=== PATIENT | female | born 1960 | race Caucasian/White ===

== ENCOUNTER 2019-07-21 00:13 | Inpatient (IN) ==
[2019-07-21] MEDS ORDERED: Morphine Sulfate 2 MG/ML SYRINGE IVP ONE (02:27)
[2019-07-21] MEDS ORDERED: Naloxone 0.4 MG/ML INJ IVP PRN (02:41)
[2019-07-21] MEDS ORDERED: Ondansetron 4 MG/2 ML VIAL IVP PRN (02:41)
[2019-07-21] MEDS ORDERED: *HR* Dextrose 50 % in Water (Syg) 50 ML SYRINGE IVP PRN (02:51)
[2019-07-21] MEDS ORDERED: D5% in Water 1,000 ML IVC PRN (02:51)
[2019-07-21] MEDS ORDERED: Dextrose Gel 15 GM/37.5 ML TUBE PO PRN ×2 (02:51)
[2019-07-21] MEDS ORDERED: Vancomycin 1,500 MG/265 ML IV.SOLN IVPB ONE (04:01)
[2019-07-21 04:04] LABS: Bilirubin,Urine Negative (Negative); Blood,Urine Negative (Negative); Clarity,Urine Clear (Clear); Color,Urine Yellow (Yellow); Glucose,Urine (UA) >=1000 mg/dL (Normal); Ketones,Urine Negative (Negative); Leukocyte Esterase,Urine Negative (Negative); Nitrite,Urine Negative (Negative); PH,Urine 6.5 pH Units (5.0-8.0); Protein,Urine Negative (Neg-Trace); Specific Gravity,Urine 1.025 (1.010-1.025); Urobilinogen,Urine Normal (Normal)
[2019-07-21 04:04] LABS: Basophils % 0.2 %; Hemoglobin 12.1 g/dL (11.5-15.4); Immature Granulocytes % 0.8 % (0-4); Lymphocytes # 0.2 K/mcL (0.6-4.6); Mean Corpuscular HGB Conc 32.7 g/dL (31.6-35.5); Mean Corpuscular Hemoglobin 29.7 pg (28.0-33.3); Mean Corpuscular Volume 90.7 fL (83.0-100.0); Mean Platelet Volume 10.3 fL (9.4-12.4); Monocytes # 0.2 K/mcL (0.0-1.3); Monocytes % 3.5 %; Neutrophils # 6.2 K/mcL (1.6-8.9); Platelet Count 115 K/mcL (140-400); Red Blood Count 4.08 M/mcL (3.82-4.97); Red Cell Distribution Width 14.1 % (11.5-14.5); Segmented Neutrophils % 92.5 %; White Blood Count 6.6 K/mcL (4.3-11.1)
[2019-07-21 04:10] LABS: INR 1.3; Prothrombin Time 14.4 Seconds (9.4-12.1)
[2019-07-21 04:36] LABS: Alanine Aminotransferase 26 Units/L (7-52); Albumin 3.5 g/dL (3.5-5.7); Alkaline Phosphatase 96 Units/L (34-104); Aspartate Amino Transferase 88 Units/L (13-39); BUN/Creatinine Ratio 24 (6-26); Bilirubin,Total 0.5 mg/dL (0.3-1.0); Blood Urea Nitrogen 14 mg/dL (6-20); C-Reactive Protein 279 mg/L (Less than 10); Calcium 7.9 mg/dL (8.6-10.3); Carbon Dioxide 24 mEq/L (23-29); Chloride 95 mEq/L (98-107); Globulin 3.6 g/dL (2.4-3.5); Glucose 458 mg/dL (70-105); Lactate Dehydrogenase 903 Units/L (140-271); Magnesium 1.9 mg/dL (1.6-2.6); Osmolality,Calculated 290 (280-300); Potassium 3.9 mEq/L (3.5-5.1); Sodium 130 mEq/L (136-145); Total Protein 7.1 g/dL (6.4-8.9); Troponin I < 0.03 ng/mL (< 0.04); eGFR For African Americans > 60 (> 60); eGFR For Non-African Americans > 60 (> 60)
[2019-07-21 04:52] LABS: Ferritin 854 ng/mL (10-120)
[2019-07-21] MEDS: Insulin LISPRO 300 UNITS/3 ML VIAL SQ SCH ×6 (05:06→23:57)
[2019-07-21] MEDS: *HR* LORazepam 2 MG/ML VIAL IVP PRN (05:08)
[2019-07-21] MEDS: *HR* Enoxaparin 40 MG/0.4 ML SYRINGE SQ SCH (05:11)
[2019-07-21] MEDS ORDERED: 0.9 % Sodium Chloride 500 ML IVC ONE (05:53)
[2019-07-21] MEDS ORDERED: Piperacillin/Tazobactam 3.375 GM in 0.9 % Sodium Chloride Mini Bag 100 ML IVPB SCH (06:00)
[2019-07-21] MEDS ORDERED: Azithromycin 250 MG TABLET PO SCH (07:00)
[2019-07-21] MEDS ORDERED: *HR* LORazepam 2 MG/ML VIAL IVP ONE (08:35)
[2019-07-21] MEDS ORDERED: methylPREDNISolone 125 MG/2 ML VIAL IVP ONE (08:57)
[2019-07-21] MEDS ORDERED: Azithromycin 500 MG in 0.9 % Sodium Chloride 250 ML IVPB SCH (09:00)
[2019-07-21 09:02] LABS: ABG Base Excess 2 mEq/L (-2 to 3); ABG HCO3 27 mEq/L (21-27); ABG Oxygen Saturation 98 % (95-98); ABG PCO2 42 mmHg (35-45); ABG PH 7.41 pH Units (7.32-7.45); ABG PO2 97 mmHg (85-104); ABG TCO2 28 mEq/L (20-26)
[2019-07-21 10:02] LABS: Adenovirus Not Detected (Not Detect); Bordetella Pertussis Not Detected (Not Detect); Chlamydophila pneumoniae Not Detected (Not Detect); Coronavirus 229E Not Detected (Not Detect); Coronavirus HKU1 Not Detected (Not Detect); Coronavirus NL63 Not Detected (Not Detect); Coronavirus OC43 Not Detected (Not Detect); Human Metapneumovirus Not Detected (Not Detect); Human Rhinovirus/Enterovirus Not Detected (Not Detect); Influenza A Subtype 2009 H1 Not Detected (Not Detect); Influenza B Not Detected (Not Detect); Mycoplasma pneumoniae Not Detected (Not Detect); Parainfluenza Virus 1 Not Detected (Not Detect); Parainfluenza Virus 2 Not Detected (Not Detect); Parainfluenza Virus 3 Not Detected (Not Detect); Parainfluenza Virus 4 Not Detected (Not Detect); Respiratory Syncytial Virus Not Detected (Not Detect)
[2019-07-21] MEDS: Piperacillin/Tazobactam 3.375 GM in 0.9 % Sodium Chloride Mini Bag 100 ML IVPB SCH ×2 (13:23→19:59)
[2019-07-21] MEDS: Vancomycin 1,250 MG/262.5 ML IV.SOLN IVPB SCH (16:37)
[2019-07-21] MEDS ORDERED: methylPREDNISolone 125 MG/2 ML VIAL IVP SCH (18:00)
[2019-07-21] MEDS: Doxycycline 100 MG in 0.9 % Sodium Chloride Mini Bag 100 ML IVPB SCH (18:05)
[2019-07-21] MEDS: Famotidine 20 MG/2 ML VIAL IVP SCH (18:05)
[2019-07-21] MEDS: *HR* OxyCODONE/APAP 7.5/325 TABLET PO PRN (18:06)
[2019-07-21] MEDS: QUEtiapine Fumarate 300 MG TABLET PO SCH (19:55)
[2019-07-21] MEDS: diazePAM 2 MG TABLET PO SCH (19:57)
[2019-07-21] MEDS: Divalproex (12 HR) 500 MG TABLET PO SCH (19:57)
[2019-07-21] MEDS: QUEtiapine Fumarate 25 MG TABLET PO SCH (19:57)
[2019-07-21] MEDS: Insulin DETEMIR 100 UNIT/ML X5UNITS SQ SCH (19:57)
[2019-07-21] MEDS: Dexmedetomidine HCl 400 MCG/100 ML MLS IVC SCH (19:58)
[2019-07-22] MEDS: Insulin LISPRO 300 UNITS/3 ML VIAL SQ SCH ×5 (04:00→21:11)
[2019-07-22 04:03] LABS: Basophils % 0.1 %; Hematocrit 35.7 % (35.3-44.9); Hemoglobin 11.5 g/dL (11.5-15.4); Immature Granulocytes % 0.5 % (0-4); Lymphocytes # 0.7 K/mcL (0.6-4.6); Lymphocytes % 9.5 %; Mean Corpuscular HGB Conc 32.2 g/dL (31.6-35.5); Mean Corpuscular Hemoglobin 29.6 pg (28.0-33.3); Mean Platelet Volume 10.2 fL (9.4-12.4); Monocytes # 0.3 K/mcL (0.0-1.3); Monocytes % 3.4 %; Neutrophils # 6.4 K/mcL (1.6-8.9); Platelet Count 113 K/mcL (140-400); Red Blood Count 3.88 M/mcL (3.82-4.97); Red Cell Distribution Width 14.1 % (11.5-14.5); Segmented Neutrophils % 86.5 %; White Blood Count 7.4 K/mcL (4.3-11.1)
[2019-07-22 04:10] LABS: INR 1.1; Prothrombin Time 12.6 Seconds (9.4-12.1)
[2019-07-22 04:13] LABS: Activated Partial Thrombo Time 27.8 Seconds (26.0-36.0)
[2019-07-22] MEDS: *HR* LORazepam 2 MG/ML VIAL IVP PRN (04:14)
[2019-07-22 04:27] LABS: Alanine Aminotransferase 22 Units/L (7-52); Albumin 3.1 g/dL (3.5-5.7); Alkaline Phosphatase 89 Units/L (34-104); Aspartate Amino Transferase 55 Units/L (13-39); BUN/Creatinine Ratio 32 (6-26); Bilirubin,Direct 0.1 mg/dL (0.0-0.2); Bilirubin,Indirect 0.3 mg/dL (0.0-1.0); Bilirubin,Total 0.4 mg/dL (0.3-1.0); Blood Urea Nitrogen 19 mg/dL (6-20); C-Reactive Protein 168 mg/L (Less than 10); Calcium 8.1 mg/dL (8.6-10.3); Carbon Dioxide 27 mEq/L (23-29); Chloride 102 mEq/L (98-107); Globulin 3.2 g/dL (2.4-3.5); Glucose 137 mg/dL (70-105); Lactate Dehydrogenase 796 Units/L (140-271); Magnesium 2.3 mg/dL (1.6-2.6); Osmolality,Calculated 290 (280-300); Phosphorous 2.5 mg/dL (2.7-4.5); Potassium 3.8 mEq/L (3.5-5.1); Sodium 138 mEq/L (136-145); Total Protein 6.3 g/dL (6.4-8.9); Troponin I < 0.03 ng/mL (< 0.04); eGFR For African Americans > 60 (> 60); eGFR For Non-African Americans > 60 (> 60)
[2019-07-22] MEDS: Vancomycin 1,250 MG/262.5 ML IV.SOLN IVPB SCH ×2 (04:37→17:01)
[2019-07-22] MEDS: Piperacillin/Tazobactam 3.375 GM in 0.9 % Sodium Chloride Mini Bag 100 ML IVPB SCH (04:38)
[2019-07-22 04:43] LABS: Ferritin 1076 ng/mL (10-120)
[2019-07-22 04:53] LABS: Platelet Estimate Slight Decrease (Normal); Polychromasia 1+ (Not Present)
[2019-07-22] MEDS: Dexmedetomidine HCl 400 MCG/100 ML MLS IVC SCH (06:07)
[2019-07-22] MEDS: Doxycycline 100 MG in 0.9 % Sodium Chloride Mini Bag 100 ML IVPB SCH ×2 (06:30→17:01)
[2019-07-22] MEDS: *HR* Enoxaparin 40 MG/0.4 ML SYRINGE SQ SCH (06:30)
[2019-07-22] MEDS: Famotidine 20 MG/2 ML VIAL IVP SCH ×2 (06:30→17:01)
[2019-07-22] MEDS ORDERED: Furosemide 40 MG/4 ML VIAL IVP ONE (06:58)
[2019-07-22] MEDS: Divalproex (12 HR) 500 MG TABLET PO SCH ×4 (07:14→20:33)
[2019-07-22] MEDS: Lactobacillus 1 EACH CAP.SPRINK PO SCH ×2 (07:14→08:24)
[2019-07-22] MEDS: Loratadine 10 MG TABLET PO SCH ×2 (07:14→08:24)
[2019-07-22] MEDS: diazePAM 2 MG TABLET PO SCH ×5 (07:15→20:34)
[2019-07-22] MEDS: lamoTRIgine 100 MG TABLET PO SCH ×2 (07:15→08:21)
[2019-07-22] MEDS: QUEtiapine Fumarate 300 MG TABLET PO SCH ×3 (07:15→20:32)
[2019-07-22] MEDS: QUEtiapine Fumarate 25 MG TABLET PO SCH ×5 (07:15→20:30)
[2019-07-22] MEDS: Tiotropium 18 MCG inhalation IH SCH (07:47)
[2019-07-22] MEDS: *HR* OxyCODONE/APAP 7.5/325 TABLET PO PRN ×3 (08:24→22:33)
[2019-07-22] MEDS ORDERED: Doxycycline 100 MG in 0.9 % Sodium Chloride Mini Bag 100 ML IVPB SCH (09:41)
[2019-07-22] MEDS ORDERED: Aminoglycoside Consult 1 EACH MC ONE (10:10)
[2019-07-22] MEDS: Cefepime HCl 2,000 MG in 0.9 % Sodium Chloride Mini Bag 100 ML IVPB SCH (15:21)
[2019-07-22] MEDS: MethylPREDNISolone 40 MG/ML VIAL IVP SCH (17:01)
[2019-07-22] MEDS: Furosemide 40 MG/4 ML VIAL IVP SCH (20:30)
[2019-07-22] MEDS: Insulin DETEMIR 100 UNIT/ML X5UNITS SQ SCH (20:36)
[2019-07-23] MEDS: Cefepime HCl 2,000 MG in 0.9 % Sodium Chloride Mini Bag 100 ML IVPB SCH ×4 (00:10→23:39)
[2019-07-23] MEDS: Insulin LISPRO 300 UNITS/3 ML VIAL SQ SCH ×6 (00:33→21:04)
[2019-07-23 03:45] LABS: Red Cell Distribution Width 14.1 % (11.5-14.5)
[2019-07-23 03:46] LABS: Basophils % 0.3 %; Hematocrit 36.3 % (35.3-44.9); Hemoglobin 11.8 g/dL (11.5-15.4); Immature Granulocytes % 0.3 % (0-4); Immature Platelets 2.4 % (1.1-6.1); Lymphocytes # 0.5 K/mcL (0.6-4.6); Lymphocytes % 12.5 %; Mean Corpuscular HGB Conc 32.5 g/dL (31.6-35.5); Mean Corpuscular Hemoglobin 29.6 pg (28.0-33.3); Mean Corpuscular Volume 91.2 fL (83.0-100.0); Mean Platelet Volume 9.8 fL (9.4-12.4); Monocytes # 0.1 K/mcL (0.0-1.3); Neutrophils # 3.4 K/mcL (1.6-8.9); Red Blood Count 3.98 M/mcL (3.82-4.97); Segmented Neutrophils % 83.9 %
[2019-07-23 03:51] LABS: Platelet Count 91 K/mcL (140-400)
[2019-07-23 04:04] LABS: BUN/Creatinine Ratio 37 (6-26); Blood Urea Nitrogen 26 mg/dL (6-20); Calcium 7.9 mg/dL (8.6-10.3); Carbon Dioxide 29 mEq/L (23-29); Chloride 99 mEq/L (98-107); Glucose 194 mg/dL (70-105); Osmolality,Calculated 296 (280-300); Potassium 3.4 mEq/L (3.5-5.1); Sodium 138 mEq/L (136-145); eGFR For African Americans > 60 (> 60); eGFR For Non-African Americans > 60 (> 60)
[2019-07-23 04:16] LABS: Platelet Estimate Decreased (Normal)
[2019-07-23] MEDS: Doxycycline 100 MG in 0.9 % Sodium Chloride Mini Bag 100 ML IVPB SCH ×2 (05:32→17:30)
[2019-07-23] MEDS: *HR* Enoxaparin 40 MG/0.4 ML SYRINGE SQ SCH (05:33)
[2019-07-23] MEDS: MethylPREDNISolone 40 MG/ML VIAL IVP SCH ×2 (05:34→08:13)
[2019-07-23] MEDS: Famotidine 20 MG/2 ML VIAL IVP SCH ×2 (05:36→17:30)
[2019-07-23] MEDS: Vancomycin 1,250 MG/262.5 ML IV.SOLN IVPB SCH (05:37)
[2019-07-23] MEDS: *HR* OxyCODONE/APAP 7.5/325 TABLET PO PRN ×2 (05:59→12:15)
[2019-07-23] MEDS: Furosemide 40 MG/4 ML VIAL IVP SCH ×2 (08:08→11:03)
[2019-07-23] MEDS: diazePAM 2 MG TABLET PO SCH ×2 (08:08→16:16)
[2019-07-23] MEDS: QUEtiapine Fumarate 25 MG TABLET PO SCH ×2 (08:08→17:30)
[2019-07-23] MEDS: lamoTRIgine 100 MG TABLET PO SCH (08:09)
[2019-07-23] MEDS: Loratadine 10 MG TABLET PO SCH (08:09)
[2019-07-23] MEDS: QUEtiapine Fumarate 300 MG TABLET PO SCH ×2 (08:18→21:01)
[2019-07-23] MEDS: Lactobacillus 1 EACH CAP.SPRINK PO SCH (08:54)
[2019-07-23] MEDS ORDERED: QUEtiapine Fumarate 25 MG TABLET PO SCH (09:00)
[2019-07-23] MEDS: Tiotropium 18 MCG inhalation IH SCH (10:43)
[2019-07-23] MEDS: Divalproex (12 HR) 500 MG TABLET PO SCH (20:40)
[2019-07-23] MEDS: Insulin DETEMIR 100 UNIT/ML X5UNITS SQ SCH (21:01)
[2019-07-24] MEDS: Insulin LISPRO 300 UNITS/3 ML VIAL SQ SCH ×7 (00:08→23:44)
[2019-07-24] MEDS: *HR* OxyCODONE/APAP 7.5/325 TABLET PO PRN ×3 (02:40→13:12)
[2019-07-24 04:36] LABS: Immature Granulocytes % 0.4 % (0-4); Mean Corpuscular Hemoglobin 29.7 pg (28.0-33.3)
[2019-07-24 04:38] LABS: Basophils # 0.1 K/mcL (0.0-0.2); Basophils % 1.4 %; Eosinophils % 0.6 %; Hematocrit 36.2 % (35.3-44.9); Hemoglobin 11.8 g/dL (11.5-15.4); Immature Platelets 2.1 % (1.1-6.1); Lymphocytes % 20.2 %; Mean Corpuscular HGB Conc 32.6 g/dL (31.6-35.5); Mean Corpuscular Volume 91.2 fL (83.0-100.0); Mean Platelet Volume 9.8 fL (9.4-12.4); Monocytes # 0.2 K/mcL (0.0-1.3); Monocytes % 3.6 %; Red Blood Count 3.97 M/mcL (3.82-4.97); Red Cell Distribution Width 14.2 % (11.5-14.5); Segmented Neutrophils % 73.8 %; White Blood Count 5.1 K/mcL (4.3-11.1)
[2019-07-24 04:39] LABS: Neutrophils # 3.8 K/mcL (1.6-8.9); Platelet Count 81 K/mcL (140-400)
[2019-07-24 04:55] LABS: BUN/Creatinine Ratio 45 (6-26); Blood Urea Nitrogen 26 mg/dL (6-20); Carbon Dioxide 26 mEq/L (23-29); Chloride 104 mEq/L (98-107); Glucose 100 mg/dL (70-105); Osmolality,Calculated 291 (280-300); Potassium 3.9 mEq/L (3.5-5.1); Sodium 138 mEq/L (136-145); eGFR For African Americans > 60 (> 60); eGFR For Non-African Americans > 60 (> 60)
[2019-07-24 05:02] LABS: Platelet Estimate Decreased (Normal)
[2019-07-24] MEDS: *HR* Enoxaparin 40 MG/0.4 ML SYRINGE SQ SCH (06:28)
[2019-07-24] MEDS: Famotidine 20 MG/2 ML VIAL IVP SCH ×2 (06:28→17:19)
[2019-07-24] MEDS: Doxycycline 100 MG in 0.9 % Sodium Chloride Mini Bag 100 ML IVPB SCH ×2 (06:30→17:19)
[2019-07-24] MEDS: Tiotropium 18 MCG inhalation IH SCH (07:41)
[2019-07-24] MEDS: Cefepime HCl 2,000 MG in 0.9 % Sodium Chloride Mini Bag 100 ML IVPB SCH ×3 (07:49→23:44)
[2019-07-24] MEDS: Divalproex (12 HR) 500 MG TABLET PO SCH ×2 (07:50→20:23)
[2019-07-24] MEDS: Loratadine 10 MG TABLET PO SCH (07:50)
[2019-07-24] MEDS: Furosemide 40 MG/4 ML VIAL IVP SCH (07:51)
[2019-07-24] MEDS: lamoTRIgine 100 MG TABLET PO SCH (07:51)
[2019-07-24] MEDS: QUEtiapine Fumarate 25 MG TABLET PO SCH ×2 (07:51→16:17)
[2019-07-24] MEDS: Lactobacillus 1 EACH CAP.SPRINK PO SCH (07:52)
[2019-07-24] MEDS: MethylPREDNISolone 40 MG/ML VIAL IVP SCH (07:52)
[2019-07-24 11:38] LABS: Ferritin 826 ng/mL (10-120); Lactate Dehydrogenase 653 Units/L (140-271)
[2019-07-24 11:47] LABS: C-Reactive Protein 58 mg/L (Less than 10)
[2019-07-24] MEDS: diazePAM 2 MG TABLET PO PRN (13:12)
[2019-07-24] MEDS ORDERED: 0.9 % Sodium Chloride 500 ML ONE (17:25)
[2019-07-24] MEDS: QUEtiapine Fumarate 300 MG TABLET PO SCH (20:24)
[2019-07-24] MEDS: Insulin DETEMIR 100 UNIT/ML X5UNITS SQ SCH (20:59)
[2019-07-25] MEDS: Insulin LISPRO 300 UNITS/3 ML VIAL SQ SCH ×6 (04:00→23:49)
[2019-07-25 05:10] LABS: Red Cell Distribution Width 14.1 % (11.5-14.5)
[2019-07-25 05:12] LABS: Basophils % 1.1 %; Eosinophils # 0.1 K/mcL (0.0-0.6); Eosinophils % 2.5 %; Hematocrit 36.6 % (35.3-44.9); Immature Granulocytes % 0.7 % (0-4); Lymphocytes # 0.7 K/mcL (0.6-4.6); Lymphocytes % 25.7 %; Mean Corpuscular HGB Conc 32.8 g/dL (31.6-35.5); Mean Corpuscular Hemoglobin 29.5 pg (28.0-33.3); Mean Corpuscular Volume 89.9 fL (83.0-100.0); Monocytes # 0.1 K/mcL (0.0-1.3); Monocytes % 5.1 %; Neutrophils # 1.8 K/mcL (1.6-8.9); Red Blood Count 4.07 M/mcL (3.82-4.97); Segmented Neutrophils % 64.9 %; White Blood Count 2.8 K/mcL (4.3-11.1)
[2019-07-25] MEDS: Doxycycline 100 MG in 0.9 % Sodium Chloride Mini Bag 100 ML IVPB SCH ×2 (05:28→16:55)
[2019-07-25 05:30] LABS: BUN/Creatinine Ratio 34 (6-26); Blood Urea Nitrogen 21 mg/dL (6-20); Calcium 8.3 mg/dL (8.6-10.3); Carbon Dioxide 25 mEq/L (23-29); Chloride 105 mEq/L (98-107); Glucose 78 mg/dL (70-105); Osmolality,Calculated 282 (280-300); Potassium 3.8 mEq/L (3.5-5.1); Sodium 135 mEq/L (136-145); eGFR For African Americans > 60 (> 60); eGFR For Non-African Americans > 60 (> 60)
[2019-07-25] MEDS: *HR* Enoxaparin 40 MG/0.4 ML SYRINGE SQ SCH (05:30)
[2019-07-25] MEDS: Famotidine 20 MG/2 ML VIAL IVP SCH ×2 (05:30→16:56)
[2019-07-25 05:31] LABS: Platelet Count 74 K/mcL (140-400)
[2019-07-25 05:51] LABS: Platelet Estimate Decreased (Normal)
[2019-07-25] MEDS: *HR* LORazepam 2 MG/ML VIAL IVP PRN ×3 (07:30→23:38)
[2019-07-25] MEDS: Tiotropium 18 MCG inhalation IH SCH (07:44)
[2019-07-25] MEDS: diazePAM 2 MG TABLET PO PRN ×2 (07:49→14:08)
[2019-07-25] MEDS: Cefepime HCl 2,000 MG in 0.9 % Sodium Chloride Mini Bag 100 ML IVPB SCH ×3 (07:49→23:08)
[2019-07-25] MEDS: MethylPREDNISolone 40 MG/ML VIAL IVP SCH (07:49)
[2019-07-25] MEDS: *HR* OxyCODONE/APAP 7.5/325 TABLET PO PRN ×2 (07:49→14:07)
[2019-07-25] MEDS: QUEtiapine Fumarate 25 MG TABLET PO SCH ×2 (07:50→14:07)
[2019-07-25] MEDS: lamoTRIgine 100 MG TABLET PO SCH (07:50)
[2019-07-25] MEDS: Loratadine 10 MG TABLET PO SCH (07:51)
[2019-07-25] MEDS: Lactobacillus 1 EACH CAP.SPRINK PO SCH (07:52)
[2019-07-25] MEDS ORDERED: QUEtiapine Fumarate 25 MG TABLET PO SCH (16:00)
[2019-07-25] MEDS: QUEtiapine Fumarate 100 MG TABLET PO SCH (19:31)
[2019-07-25] MEDS: Divalproex (12 HR) 500 MG TABLET PO SCH (19:31)
[2019-07-25] MEDS: Insulin DETEMIR 100 UNIT/ML X5UNITS SQ SCH (19:32)
[2019-07-25] MEDS ORDERED: QUEtiapine Fumarate 300 MG TABLET PO SCH (21:00)
[2019-07-26] MEDS: *HR* Enoxaparin 40 MG/0.4 ML SYRINGE SQ SCH (00:56)
[2019-07-26] MEDS: Insulin LISPRO 300 UNITS/3 ML VIAL SQ SCH ×5 (03:30→20:04)
[2019-07-26] MEDS: Doxycycline 100 MG in 0.9 % Sodium Chloride Mini Bag 100 ML IVPB SCH ×2 (05:02→16:50)
[2019-07-26] MEDS: Famotidine 20 MG/2 ML VIAL IVP SCH ×2 (05:02→16:24)
[2019-07-26 05:52] LABS: Basophils % 0.3 %; Eosinophils % 0.9 %; Hematocrit 44.1 % (35.3-44.9); Hemoglobin 14.1 g/dL (11.5-15.4); Immature Granulocytes % 0.3 % (0-4); Immature Platelets 2.6 % (1.1-6.1); Lymphocytes # 0.5 K/mcL (0.6-4.6); Lymphocytes % 15.2 %; Mean Corpuscular Hemoglobin 29.6 pg (28.0-33.3); Mean Corpuscular Volume 92.6 fL (83.0-100.0); Mean Platelet Volume 11.1 fL (9.4-12.4); Monocytes # 0.2 K/mcL (0.0-1.3); Monocytes % 5.8 %; Red Blood Count 4.76 M/mcL (3.82-4.97); Red Cell Distribution Width 14.2 % (11.5-14.5); Segmented Neutrophils % 77.5 %; White Blood Count 3.4 K/mcL (4.3-11.1)
[2019-07-26 06:12] LABS: Alanine Aminotransferase 17 Units/L (7-52); Albumin 3.5 g/dL (3.5-5.7); Alkaline Phosphatase 96 Units/L (34-104); Aspartate Amino Transferase 26 Units/L (13-39); BUN/Creatinine Ratio 40 (6-26); Bilirubin,Total 0.5 mg/dL (0.3-1.0); Blood Urea Nitrogen 21 mg/dL (6-20); Calcium 9.2 mg/dL (8.6-10.3); Carbon Dioxide 19 mEq/L (23-29); Chloride 108 mEq/L (98-107); Globulin 3.6 g/dL (2.4-3.5); Glucose 97 mg/dL (70-105); Osmolality,Calculated 287 (280-300); Potassium 4.1 mEq/L (3.5-5.1); Sodium 137 mEq/L (136-145); Total Protein 7.1 g/dL (6.4-8.9); eGFR For African Americans > 60 (> 60); eGFR For Non-African Americans > 60 (> 60)
[2019-07-26 06:26] LABS: Neutrophils # 2.6 K/mcL (1.6-8.9); Platelet Count 70 K/mcL (140-400)
[2019-07-26 06:28] LABS: Platelet Estimate Decreased (Normal)
[2019-07-26] MEDS: Lactobacillus 1 EACH CAP.SPRINK PO SCH (07:39)
[2019-07-26] MEDS: Loratadine 10 MG TABLET PO SCH (07:39)
[2019-07-26] MEDS: lamoTRIgine 100 MG TABLET PO SCH (07:39)
[2019-07-26] MEDS: Divalproex (12 HR) 500 MG TABLET PO SCH ×2 (07:43→20:59)
[2019-07-26] MEDS: MethylPREDNISolone 40 MG/ML VIAL IVP SCH (08:21)
[2019-07-26] MEDS: Cefepime HCl 2,000 MG in 0.9 % Sodium Chloride Mini Bag 100 ML IVPB SCH ×3 (08:21→23:38)
[2019-07-26] MEDS ORDERED: QUEtiapine Fumarate 25 MG TABLET PO SCH (09:00)
[2019-07-26] MEDS: Tiotropium 18 MCG inhalation IH SCH (10:31)
[2019-07-26] MEDS: Ipratropium 1 PUFF INHALER IH SCH ×2 (15:24→19:49)
[2019-07-26] MEDS: QUEtiapine Fumarate 25 MG TABLET PO SCH (16:24)
[2019-07-26] MEDS: *HR* Enoxaparin 80 MG/0.8 ML SYRINGE SQ SCH (16:25)
[2019-07-26 17:47] LABS: ABG Base Excess -4 mEq/L (-2 to 3); ABG HCO3 20 mEq/L (21-27); ABG Oxygen Saturation 92 % (95-98); ABG PCO2 31 mmHg (35-45); ABG PH 7.41 pH Units (7.32-7.45); ABG PO2 62 mmHg (85-104); ABG TCO2 21 mEq/L (20-26)
[2019-07-26] MEDS: QUEtiapine Fumarate 100 MG TABLET PO SCH (20:59)
[2019-07-26] MEDS: Insulin DETEMIR 100 UNIT/ML X5UNITS SQ SCH (21:00)
[2019-07-27] MEDS: Insulin LISPRO 300 UNITS/3 ML VIAL SQ SCH ×7 (00:22→23:45)
[2019-07-27] MEDS: Ipratropium 1 PUFF INHALER IH SCH ×7 (00:26→23:35)
[2019-07-27] MEDS: *HR* LORazepam 2 MG/ML VIAL IVP PRN ×3 (02:25→07:24)
[2019-07-27 04:20] LABS: Hematocrit 39.1 % (35.3-44.9); Hemoglobin 12.7 g/dL (11.5-15.4); INR 1.5; Immature Platelets 2.5 % (1.1-6.1); Mean Corpuscular HGB Conc 32.5 g/dL (31.6-35.5); Mean Corpuscular Hemoglobin 29.5 pg (28.0-33.3); Mean Corpuscular Volume 90.9 fL (83.0-100.0); Mean Platelet Volume 9.9 fL (9.4-12.4); Prothrombin Time 16.5 Seconds (9.4-12.1); Red Cell Distribution Width 14.3 % (11.5-14.5); White Blood Count 3.5 K/mcL (4.3-11.1)
[2019-07-27 04:25] LABS: Platelet Count 87 K/mcL (140-400)
[2019-07-27 04:31] LABS: Troponin I < 0.03 ng/mL (< 0.04)
[2019-07-27 04:32] LABS: Alanine Aminotransferase 17 Units/L (7-52); Albumin 3.2 g/dL (3.5-5.7); Albumin/Globulin Ratio 0.9 (1.1-2.2); Alkaline Phosphatase 92 Units/L (34-104); Aspartate Amino Transferase 19 Units/L (13-39); BUN/Creatinine Ratio 38 (6-26); Bilirubin,Direct 0.1 mg/dL (0.0-0.2); Bilirubin,Indirect 0.6 mg/dL (0.0-1.0); Bilirubin,Total 0.7 mg/dL (0.3-1.0); Blood Urea Nitrogen 20 mg/dL (6-20); C-Reactive Protein 104 mg/L (Less than 10); Carbon Dioxide 19 mEq/L (23-29); Chloride 107 mEq/L (98-107); Globulin 3.6 g/dL (2.4-3.5); Glucose 144 mg/dL (70-105); Lactate Dehydrogenase 520 Units/L (140-271); Osmolality,Calculated 289 (280-300); Phosphorous 2.1 mg/dL (2.7-4.5); Sodium 137 mEq/L (136-145); Total Protein 6.8 g/dL (6.4-8.9); eGFR For African Americans > 60 (> 60); eGFR For Non-African Americans > 60 (> 60)
[2019-07-27 04:49] LABS: Ferritin 503 ng/mL (10-120)
[2019-07-27 05:17] LABS: Anisocytosis 1+ (Not Present); Lymphocytes # 0.4 K/mcL (0.6-4.6); Monocytes # 0.1 K/mcL (0.0-1.3); Platelet Estimate Decreased (Normal)
[2019-07-27] MEDS: Doxycycline 100 MG in 0.9 % Sodium Chloride Mini Bag 100 ML IVPB SCH ×2 (05:39→17:30)
[2019-07-27] MEDS: Famotidine 20 MG/2 ML VIAL IVP SCH ×2 (05:39→17:31)
[2019-07-27 05:46] LABS: ABG Base Excess -4 mEq/L (-2 to 3); ABG HCO3 19 mEq/L (21-27); ABG Oxygen Saturation 88 % (95-98); ABG PCO2 29 mmHg (35-45); ABG PH 7.42 pH Units (7.32-7.45); ABG PO2 52 mmHg (85-104); ABG TCO2 20 mEq/L (20-26); Blood Gas Modality NIV
[2019-07-27] MEDS: *HR* Enoxaparin 80 MG/0.8 ML SYRINGE SQ SCH ×2 (06:17→17:30)
[2019-07-27] MEDS: Cefepime HCl 2,000 MG in 0.9 % Sodium Chloride Mini Bag 100 ML IVPB SCH (07:24)
[2019-07-27] MEDS: Furosemide 40 MG/4 ML VIAL IVP SCH (07:25)
[2019-07-27] MEDS: MethylPREDNISolone 40 MG/ML VIAL IVP SCH (07:25)
[2019-07-27] MEDS: Dexmedetomidine HCl 400 MCG/100 ML MLS IVC SCH (08:41)
[2019-07-27] MEDS ORDERED: *HR* Succinylcholine 200 MG/10 ML VIAL IVP ONE (08:54)
[2019-07-27] MEDS ORDERED: *HR* Rocuronium Bromide 100 MG/10 ML VIAL IVC ONE (08:54)
[2019-07-27] MEDS ORDERED: *HR* Propofol 200 MG/20 ML VIAL IVP ONE (08:54)
[2019-07-27] MEDS ORDERED: Lidocaine 2% Syringe 100 MG/5 ML IV ONE (08:54)
[2019-07-27] MEDS ORDERED: *HR* Rocuronium Bromide 50 MG/5 ML VIAL IVP ONE (09:58)
[2019-07-27] MEDS ORDERED: 0.9 % Sodium Chloride 500 ML ONE (10:01)
[2019-07-27] MEDS: FentaNYL (PF) 1,000 MCG in 0.9 % Sodium Chloride 80 ML IVC SCH ×2 (10:30→17:29)
[2019-07-27] MEDS: Valproic Acid Oral Soln 250 MG/5 ML UDC GTUBE SCH ×3 (11:26→23:43)
[2019-07-27] MEDS: Lactobacillus 1 EACH CAP.SPRINK PO SCH (11:26)
[2019-07-27] MEDS: lamoTRIgine 100 MG TABLET PO SCH (11:26)
[2019-07-27] MEDS: Vancomycin 1,250 MG/262.5 ML IV.SOLN IVPB SCH ×2 (11:30→20:24)
[2019-07-27] MEDS: Piperacillin/Tazobactam 3.375 GM in 0.9 % Sodium Chloride Mini Bag 100 ML IVPB SCH ×3 (11:31→23:43)
[2019-07-27] MEDS ORDERED: *HR* Metoprolol 5 MG/5 ML VIAL IVP ONE (11:54)
[2019-07-27] MEDS ORDERED: Potassium Phosphate 44 MEQ in 0.9 % Sodium Chloride 250 ML IVPB PRN (13:41)
[2019-07-27] MEDS ORDERED: Potassium Chloride 40 MEQ/200 ML BAG IVPB PRN (13:41)
[2019-07-27] MEDS ORDERED: Calcium Gluconate 1gm/50mL 1 GM/50 ML BAG IVPB PRN (13:41)
[2019-07-27] MEDS ORDERED: Potassium Phosphate 44 MEQ in 0.9 % Sodium Chloride 250 ML IVPB ONE (13:42)
[2019-07-27 13:57] LABS: ABG Base Excess -10 mEq/L (-2 to 3); ABG HCO3 23 mEq/L (21-27); ABG Oxygen Saturation 98 % (95-98); ABG PCO2 83 mmHg (35-45); ABG PH 7.04 pH Units (7.32-7.45); ABG PO2 141 mmHg (85-104); ABG TCO2 25 mEq/L (20-26); Blood Gas VT 410 cc
[2019-07-27] MEDS: Cisatracurium 200 MG in 0.9 % Sodium Chloride 180 ML IVC SCH (14:53)
[2019-07-27 15:02] LABS: ABG Base Excess -9 mEq/L (-2 to 3); ABG HCO3 21 mEq/L (21-27); ABG Oxygen Saturation 84 % (95-98); ABG PCO2 64 mmHg (35-45); ABG PH 7.13 pH Units (7.32-7.45); ABG PO2 66 mmHg (85-104); ABG TCO2 23 mEq/L (20-26); Blood Gas Modality ASSIST CONTROL; Blood Gas VT 460 cc
[2019-07-27] MEDS: Nystatin POWDER 30 GM BOTTLE TP SCH ×2 (15:38→19:45)
[2019-07-27] MEDS: Artificial Tears SOLN 15 ML BOTTLE BOTH EYES SCH ×3 (16:11→23:43)
[2019-07-27 17:35] LABS: ABG Base Excess -6 mEq/L (-2 to 3); ABG Chloride 108 mEq/L (98-107); ABG Glucose 269 mg/dL (60-95); ABG HCO3 24 mEq/L (21-27); ABG Ionized Calcium 1.23 mmol/L (1.15-1.35); ABG Oxygen Saturation 95 % (95-98); ABG PCO2 64 mmHg (35-45); ABG PH 7.18 pH Units (7.32-7.45); ABG PO2 96 mmHg (85-104); ABG TCO2 26 mEq/L (20-26); Blood Gas Modality ASSIST CONTROL; Blood Gas VT 460 cc
[2019-07-27] MEDS: Potassium Chloride Elixir 20 MEQ/15 ML UDC GTUBE SCH (19:45)
[2019-07-27] MEDS: Chlorhexidine Rinse 15 ML MOUTHWASH MM SCH (19:45)
[2019-07-27] MEDS: QUEtiapine Fumarate 25 MG TABLET GTUBE SCH (19:45)
[2019-07-27] MEDS: Insulin DETEMIR 100 UNIT/ML X5UNITS SQ SCH (20:23)
[2019-07-28] MEDS: Artificial Tears SOLN 15 ML BOTTLE BOTH EYES SCH ×5 (03:48→21:12)
[2019-07-28] MEDS: Cisatracurium 200 MG in 0.9 % Sodium Chloride 180 ML IVC SCH ×2 (03:50→19:07)
[2019-07-28] MEDS: FentaNYL (PF) 1,000 MCG in 0.9 % Sodium Chloride 80 ML IVC SCH ×3 (03:51→23:21)
[2019-07-28] MEDS: Insulin LISPRO 300 UNITS/3 ML VIAL SQ SCH ×5 (03:52→21:12)
[2019-07-28] MEDS: Ipratropium 1 PUFF INHALER IH SCH ×5 (04:27→20:01)
[2019-07-28 04:33] LABS: ABG Base Excess -2 mEq/L (-2 to 3); ABG HCO3 27 mEq/L (21-27); ABG Oxygen Saturation 87 % (95-98); ABG PCO2 64 mmHg (35-45); ABG PH 7.24 pH Units (7.32-7.45); ABG PO2 64 mmHg (85-104); ABG TCO2 29 mEq/L (20-26); Blood Gas Modality ASSIST CONTROL; Blood Gas VT 460 cc
[2019-07-28 04:36] LABS: Basophils % 0.4 %; Hemoglobin 12.3 g/dL (11.5-15.4); Red Cell Distribution Width 14.6 % (11.5-14.5)
[2019-07-28 04:37] LABS: Bilirubin,Urine Negative (Negative); Blood,Urine Negative (Negative); Clarity,Urine Clear (Clear); Color,Urine Yellow (Yellow); Glucose,Urine (UA) Normal (Normal); Ketones,Urine Negative (Negative); Leukocyte Esterase,Urine Negative (Negative); Nitrite,Urine Negative (Negative); Protein,Urine 100 mg/dL (Neg-Trace); Specific Gravity,Urine 1.029 (1.010-1.025); Urobilinogen,Urine Normal (Normal)
[2019-07-28 04:38] LABS: Eosinophils % 0.4 %; Hematocrit 39.2 % (35.3-44.9); Immature Granulocytes % 0.8 % (0-4); Immature Platelets 3.5 % (1.1-6.1); Lymphocytes % 18.6 %; Mean Corpuscular HGB Conc 31.4 g/dL (31.6-35.5); Mean Corpuscular Hemoglobin 29.4 pg (28.0-33.3); Mean Corpuscular Volume 93.6 fL (83.0-100.0); Mean Platelet Volume 10.6 fL (9.4-12.4); Monocytes # 0.3 K/mcL (0.0-1.3); Monocytes % 4.8 %; Neutrophils # 3.9 K/mcL (1.6-8.9); Red Blood Count 4.19 M/mcL (3.82-4.97); White Blood Count 5.2 K/mcL (4.3-11.1)
[2019-07-28 04:39] LABS: Bacteria,Urine None Seen per hpf (None-Few); Hyaline Casts,Urine Few per lpf (None-Few); Squamous Epithelial Cell,Urine Many per lpf (None-Few)
[2019-07-28 04:42] LABS: INR 1.4; Prothrombin Time 16.4 Seconds (9.4-12.1)
[2019-07-28 04:44] LABS: Activated Partial Thrombo Time 27.8 Seconds (26.0-36.0)
[2019-07-28 04:56] LABS: Yeast,Urine Moderate per hpf (None Seen)
[2019-07-28 05:05] LABS: Platelet Count 98 K/mcL (140-400)
[2019-07-28 05:08] LABS: Alanine Aminotransferase 38 Units/L (7-52); Albumin 2.9 g/dL (3.5-5.7); Albumin/Globulin Ratio 0.9 (1.1-2.2); Alkaline Phosphatase 88 Units/L (34-104); Aspartate Amino Transferase 61 Units/L (13-39); BUN/Creatinine Ratio 45 (6-26); Bilirubin,Direct 0.1 mg/dL (0.0-0.2); Bilirubin,Indirect 0.4 mg/dL (0.0-1.0); Bilirubin,Total 0.5 mg/dL (0.3-1.0); Blood Urea Nitrogen 27 mg/dL (6-20); C-Reactive Protein 126 mg/L (Less than 10); Calcium 8.4 mg/dL (8.6-10.3); Carbon Dioxide 23 mEq/L (23-29); Chloride 112 mEq/L (98-107); Creatine Kinase 30 Units/L (30-223); Globulin 3.4 g/dL (2.4-3.5); Glucose 212 mg/dL (70-105); Lactate Dehydrogenase 419 Units/L (140-271); Magnesium 2.2 mg/dL (1.6-2.6); Osmolality,Calculated 305 (280-300); Phosphorous 3.1 mg/dL (2.7-4.5); Potassium 4.3 mEq/L (3.5-5.1); Sodium 142 mEq/L (136-145); Total Protein 6.3 g/dL (6.4-8.9); Troponin I 0.39 ng/mL (< 0.04); eGFR For African Americans > 60 (> 60); eGFR For Non-African Americans > 60 (> 60)
[2019-07-28 05:19] LABS: Ferritin 504 ng/mL (10-120)
[2019-07-28] MEDS: Valproic Acid Oral Soln 250 MG/5 ML UDC GTUBE SCH ×3 (05:20→17:18)
[2019-07-28] MEDS: Famotidine 20 MG/2 ML VIAL IVP SCH ×2 (05:20→17:20)
[2019-07-28] MEDS: Doxycycline 100 MG in 0.9 % Sodium Chloride Mini Bag 100 ML IVPB SCH ×2 (05:20→17:18)
[2019-07-28] MEDS: *HR* Enoxaparin 80 MG/0.8 ML SYRINGE SQ SCH ×2 (05:20→17:20)
[2019-07-28 05:42] LABS: Platelet Estimate Decreased (Normal)
[2019-07-28] MEDS: Piperacillin/Tazobactam 3.375 GM in 0.9 % Sodium Chloride Mini Bag 100 ML IVPB SCH ×2 (07:37→15:51)
[2019-07-28] MEDS: Chlorhexidine Rinse 15 ML MOUTHWASH MM SCH ×2 (07:38→20:46)
[2019-07-28] MEDS: Lactobacillus 1 EACH CAP.SPRINK PO SCH (07:38)
[2019-07-28] MEDS: lamoTRIgine 100 MG TABLET PO SCH (07:39)
[2019-07-28] MEDS: Furosemide 40 MG/4 ML VIAL IVP SCH ×2 (07:39→20:46)
[2019-07-28] MEDS: Potassium Chloride Elixir 20 MEQ/15 ML UDC GTUBE SCH ×2 (07:40→20:46)
[2019-07-28] MEDS: QUEtiapine Fumarate 25 MG TABLET GTUBE SCH ×2 (07:40→20:46)
[2019-07-28] MEDS: MethylPREDNISolone 40 MG/ML VIAL IVP SCH (07:40)
[2019-07-28] MEDS: Dexmedetomidine HCl 400 MCG/100 ML MLS IVC SCH (08:25)
[2019-07-28] MEDS: Nystatin POWDER 30 GM BOTTLE TP SCH ×3 (08:25→21:16)
[2019-07-28] MEDS: Vancomycin 1,250 MG/262.5 ML IV.SOLN IVPB SCH ×2 (09:14→20:46)
[2019-07-28 12:44] LABS: ABG Base Excess -1 mEq/L (-2 to 3); ABG HCO3 30 mEq/L (21-27); ABG Oxygen Saturation 89 % (95-98); ABG PCO2 83 mmHg (35-45); ABG PH 7.16 pH Units (7.32-7.45); ABG PO2 73 mmHg (85-104); ABG TCO2 32 mEq/L (20-26); Blood Gas Modality VC; Blood Gas VT 400 cc
[2019-07-28 18:33] LABS: ABG Base Excess -1 mEq/L (-2 to 3); ABG HCO3 31 mEq/L (21-27); ABG Oxygen Saturation 92 % (95-98); ABG PCO2 86 mmHg (35-45); ABG PH 7.16 pH Units (7.32-7.45); ABG PO2 84 mmHg (85-104); ABG TCO2 33 mEq/L (20-26); Blood Gas Modality VC; Blood Gas VT 400 cc
[2019-07-28] MEDS: Divalproex (12 HR) 500 MG TABLET PO SCH (19:26)
[2019-07-28] MEDS: Loratadine 10 MG TABLET PO SCH (19:26)
[2019-07-28 19:27] LABS: BUN/Creatinine Ratio 40 (6-26); Blood Urea Nitrogen 26 mg/dL (6-20); Calcium 8.7 mg/dL (8.6-10.3); Carbon Dioxide 28 mEq/L (23-29); Chloride 110 mEq/L (98-107); Glucose 219 mg/dL (70-105); Magnesium 2.3 mg/dL (1.6-2.6); Osmolality,Calculated 311 (280-300); Potassium 4.6 mEq/L (3.5-5.1); Sodium 145 mEq/L (136-145); eGFR For African Americans > 60 (> 60); eGFR For Non-African Americans > 60 (> 60)
[2019-07-28] MEDS: Insulin DETEMIR 100 UNIT/ML X5UNITS SQ SCH (20:47)
[2019-07-28 21:44] LABS: ABG Base Excess 1 mEq/L (-2 to 3); ABG HCO3 32 mEq/L (21-27); ABG Oxygen Saturation 89 % (95-98); ABG PCO2 82 mmHg (35-45); ABG PO2 73 mmHg (85-104); ABG TCO2 35 mEq/L (20-26); Blood Gas Modality ASSIST CONTROL; Blood Gas VT 400 cc
[2019-07-29] MEDS: Valproic Acid Oral Soln 250 MG/5 ML UDC GTUBE SCH ×5 (00:05→23:35)
[2019-07-29] MEDS: Artificial Tears SOLN 15 ML BOTTLE BOTH EYES SCH ×6 (00:05→22:01)
[2019-07-29] MEDS: Piperacillin/Tazobactam 3.375 GM in 0.9 % Sodium Chloride Mini Bag 100 ML IVPB SCH ×4 (00:05→23:35)
[2019-07-29] MEDS: Ipratropium 1 PUFF INHALER IH SCH ×7 (00:25→23:16)
[2019-07-29] MEDS: Insulin LISPRO 300 UNITS/3 ML VIAL SQ SCH ×6 (00:51→22:04)
[2019-07-29 03:56] LABS: VBG Ionized Calcium 1.23 mmol/L (1.15-1.35)
[2019-07-29 04:02] LABS: Basophils # 0.1 K/mcL (0.0-0.2); Basophils % 0.8 %; Eosinophils % 0.2 %; Hematocrit 39.2 % (35.3-44.9); Hemoglobin 12.1 g/dL (11.5-15.4); Immature Granulocytes % 0.5 % (0-4); Immature Platelets 2.8 % (1.1-6.1); Lymphocytes # 1.1 K/mcL (0.6-4.6); Lymphocytes % 18.5 %; Mean Corpuscular HGB Conc 30.9 g/dL (31.6-35.5); Mean Corpuscular Hemoglobin 30.1 pg (28.0-33.3); Mean Corpuscular Volume 97.5 fL (83.0-100.0); Mean Platelet Volume 10.6 fL (9.4-12.4); Monocytes # 0.5 K/mcL (0.0-1.3); Monocytes % 7.8 %; Neutrophils # 4.3 K/mcL (1.6-8.9); Platelet Count 127 K/mcL (140-400); Red Blood Count 4.02 M/mcL (3.82-4.97); Red Cell Distribution Width 14.6 % (11.5-14.5); Segmented Neutrophils % 72.2 %; White Blood Count 5.9 K/mcL (4.3-11.1)
[2019-07-29 04:15] LABS: BUN/Creatinine Ratio 40 (6-26); Blood Urea Nitrogen 27 mg/dL (6-20); Calcium 8.4 mg/dL (8.6-10.3); Carbon Dioxide 31 mEq/L (23-29); Chloride 113 mEq/L (98-107); Glucose 206 mg/dL (70-105); Magnesium 2.2 mg/dL (1.6-2.6); Osmolality,Calculated 319 (280-300); Phosphorous 2.8 mg/dL (2.7-4.5); Potassium 4.2 mEq/L (3.5-5.1); Sodium 149 mEq/L (136-145); eGFR For African Americans > 60 (> 60); eGFR For Non-African Americans > 60 (> 60)
[2019-07-29 04:25] LABS: ABG Base Excess 1 mEq/L (-2 to 3); ABG HCO3 32 mEq/L (21-27); ABG Oxygen Saturation 93 % (95-98); ABG PCO2 77 mmHg (35-45); ABG PH 7.23 pH Units (7.32-7.45); ABG PO2 82 mmHg (85-104); ABG TCO2 34 mEq/L (20-26); Blood Gas Modality ASSIST CONTROL; Blood Gas VT 400 cc
[2019-07-29] MEDS: Doxycycline 100 MG in 0.9 % Sodium Chloride Mini Bag 100 ML IVPB SCH ×2 (04:59→16:58)
[2019-07-29] MEDS: *HR* Enoxaparin 80 MG/0.8 ML SYRINGE SQ SCH ×2 (05:00→16:58)
[2019-07-29] MEDS: Famotidine 20 MG/2 ML VIAL IVP SCH ×2 (05:00→16:59)
[2019-07-29] MEDS: FentaNYL (PF) 1,000 MCG in 0.9 % Sodium Chloride 80 ML IVC SCH ×3 (06:15→21:15)
[2019-07-29] MEDS: Chlorhexidine Rinse 15 ML MOUTHWASH MM SCH ×2 (07:37→20:06)
[2019-07-29] MEDS: Potassium Chloride Elixir 20 MEQ/15 ML UDC GTUBE SCH ×2 (07:37→20:06)
[2019-07-29] MEDS: lamoTRIgine 100 MG TABLET GTUBE SCH (07:38)
[2019-07-29] MEDS: QUEtiapine Fumarate 25 MG TABLET GTUBE SCH ×2 (07:38→20:08)
[2019-07-29] MEDS: Furosemide 40 MG/4 ML VIAL IVP SCH (07:39)
[2019-07-29] MEDS: Lactobacillus 1 EACH CAP.SPRINK GTUBE SCH (07:39)
[2019-07-29] MEDS: MethylPREDNISolone 40 MG/ML VIAL IVP SCH (07:39)
[2019-07-29] MEDS: Nystatin POWDER 30 GM BOTTLE TP SCH ×3 (07:42→22:05)
[2019-07-29] MEDS: Dexmedetomidine HCl 400 MCG/100 ML MLS IVC SCH (08:50)
[2019-07-29] MEDS: Vancomycin 1,500 MG/265 ML IV.SOLN IVPB SCH ×2 (08:55→20:07)
[2019-07-29] MEDS: Cisatracurium 200 MG in 0.9 % Sodium Chloride 180 ML IVC SCH (08:57)
[2019-07-29 11:17] LABS: ABG Base Excess 3 mEq/L (-2 to 3); ABG HCO3 34 mEq/L (21-27); ABG Oxygen Saturation 93 % (95-98); ABG PCO2 84 mmHg (35-45); ABG PH 7.22 pH Units (7.32-7.45); ABG PO2 82 mmHg (85-104); ABG TCO2 37 mEq/L (20-26); Blood Gas VT 350 cc
[2019-07-29] MEDS: Artificial Tears SOLN 15 ML BOTTLE BOTH EYES PRN (11:56)
[2019-07-29 14:04] LABS: ABG Base Excess 5 mEq/L (-2 to 3); ABG HCO3 37 mEq/L (21-27); ABG Oxygen Saturation 88 % (95-98); ABG PCO2 106 mmHg (35-45); ABG PH 7.16 pH Units (7.32-7.45); ABG PO2 74 mmHg (85-104); ABG TCO2 41 mEq/L (20-26); Blood Gas VT 350 cc
[2019-07-29] MEDS ORDERED: Sodium Bicarbonate 50 MEQ/50 ML VIAL IVP ONE (14:33)
[2019-07-29 15:50] LABS: BUN/Creatinine Ratio 46 (6-26); Blood Urea Nitrogen 22 mg/dL (6-20); Carbon Dioxide 28 mEq/L (23-29); Chloride 120 mEq/L (98-107); Glucose 242 mg/dL (70-105); Osmolality,Calculated 321 (280-300); Potassium 3.4 mEq/L (3.5-5.1); Sodium 150 mEq/L (136-145); eGFR For African Americans > 60 (> 60); eGFR For Non-African Americans > 60 (> 60)
[2019-07-29] MEDS: Fluconazole 200 MG/100 ML 100 MG/50 ML BAG IVPB SCH (17:16)
[2019-07-29 17:39] LABS: ABG Base Excess 9 mEq/L (-2 to 3); ABG HCO3 40 mEq/L (21-27); ABG Oxygen Saturation 95 % (95-98); ABG PCO2 85 mmHg (35-45); ABG PH 7.28 pH Units (7.32-7.45); ABG PO2 90 mmHg (85-104); ABG TCO2 42 mEq/L (20-26); Blood Gas Modality AF; Blood Gas VT 380 cc
[2019-07-29] MEDS: Potassium Chloride 20 MEQ in D5% in Water 1,000 ML IVC SCH (18:21)
[2019-07-29] MEDS: Insulin DETEMIR 100 UNIT/ML X5UNITS SQ SCH (20:20)
[2019-07-29 21:03] LABS: ABG Ionized Calcium 1.18 mmol/L (1.15-1.35)
[2019-07-29 21:36] LABS: BUN/Creatinine Ratio 49 (6-26); Blood Urea Nitrogen 29 mg/dL (6-20); Calcium 8.7 mg/dL (8.6-10.3); Carbon Dioxide 40 mEq/L (23-29); Chloride 110 mEq/L (98-107); Glucose 252 mg/dL (70-105); Magnesium 2.4 mg/dL (1.6-2.6); Osmolality,Calculated 330 (280-300); Phosphorous 2.8 mg/dL (2.7-4.5); Potassium 4.4 mEq/L (3.5-5.1); Sodium 153 mEq/L (136-145); eGFR For African Americans > 60 (> 60); eGFR For Non-African Americans > 60 (> 60)
[2019-07-30] MEDS: Insulin LISPRO 300 UNITS/3 ML VIAL SQ SCH ×6 (00:36→21:21)
[2019-07-30] MEDS: Cisatracurium 200 MG in 0.9 % Sodium Chloride 180 ML IVC SCH (01:45)
[2019-07-30] MEDS: FentaNYL (PF) 1,000 MCG in 0.9 % Sodium Chloride 80 ML IVC SCH ×3 (03:56→17:24)
[2019-07-30 03:58] LABS: ABG Base Excess 10 mEq/L (-2 to 3); ABG HCO3 40 mEq/L (21-27); ABG Oxygen Saturation 94 % (95-98); ABG PCO2 87 mmHg (35-45); ABG PH 7.27 pH Units (7.32-7.45); ABG PO2 85 mmHg (85-104); ABG TCO2 43 mEq/L (20-26); Blood Gas VT 370 cc
[2019-07-30] MEDS: Ipratropium 1 PUFF INHALER IH SCH ×6 (04:24→23:24)
[2019-07-30] MEDS: Artificial Tears SOLN 15 ML BOTTLE BOTH EYES SCH ×6 (04:43→21:22)
[2019-07-30 04:44] LABS: Basophils % 0.2 %; Eosinophils % 0.2 %; Mean Corpuscular Volume 100.3 fL (83.0-100.0)
[2019-07-30] MEDS: Potassium Chloride 20 MEQ in D5% in Water 1,000 ML IVC SCH ×2 (04:44→15:20)
[2019-07-30 04:46] LABS: Hematocrit 30.5 % (35.3-44.9); Hemoglobin 8.8 g/dL (11.5-15.4); Immature Granulocytes % 1.1 % (0-4); Immature Platelets 2.6 % (1.1-6.1); Mean Corpuscular HGB Conc 28.9 g/dL (31.6-35.5); Mean Corpuscular Hemoglobin 28.9 pg (28.0-33.3); Monocytes # 0.3 K/mcL (0.0-1.3); Monocytes % 7.3 %; Neutrophils # 3.3 K/mcL (1.6-8.9); Platelet Count 106 K/mcL (140-400); Red Blood Count 3.04 M/mcL (3.82-4.97); Red Cell Distribution Width 14.6 % (11.5-14.5); Segmented Neutrophils % 70.2 %; White Blood Count 4.7 K/mcL (4.3-11.1)
[2019-07-30 04:55] LABS: ABG Ionized Calcium 1.17 mmol/L (1.15-1.35)
[2019-07-30 05:01] LABS: BUN/Creatinine Ratio 57 (6-26); Blood Urea Nitrogen 28 mg/dL (6-20); Calcium 8.2 mg/dL (8.6-10.3); Carbon Dioxide 39 mEq/L (23-29); Chloride 110 mEq/L (98-107); Glucose 250 mg/dL (70-105); Magnesium 2.3 mg/dL (1.6-2.6); Osmolality,Calculated 322 (280-300); Phosphorous 2.2 mg/dL (2.7-4.5); Potassium 4.3 mEq/L (3.5-5.1); Sodium 149 mEq/L (136-145); eGFR For African Americans > 60 (> 60); eGFR For Non-African Americans > 60 (> 60)
[2019-07-30 05:28] LABS: Platelet Estimate Normal (Normal)
[2019-07-30] MEDS: Doxycycline 100 MG in 0.9 % Sodium Chloride Mini Bag 100 ML IVPB SCH ×2 (05:56→17:26)
[2019-07-30] MEDS: Valproic Acid Oral Soln 250 MG/5 ML UDC GTUBE SCH ×3 (05:57→17:26)
[2019-07-30] MEDS: *HR* Enoxaparin 80 MG/0.8 ML SYRINGE SQ SCH (05:57)
[2019-07-30] MEDS: Famotidine 20 MG/2 ML VIAL IVP SCH ×2 (05:57→17:26)
[2019-07-30] MEDS: Dexmedetomidine HCl 400 MCG/100 ML MLS IVC SCH (07:36)
[2019-07-30] MEDS: Piperacillin/Tazobactam 3.375 GM in 0.9 % Sodium Chloride Mini Bag 100 ML IVPB SCH ×2 (07:47→15:17)
[2019-07-30] MEDS: lamoTRIgine 100 MG TABLET GTUBE SCH (07:49)
[2019-07-30] MEDS: Lactobacillus 1 EACH CAP.SPRINK GTUBE SCH (07:49)
[2019-07-30] MEDS: Fluconazole 200 MG/100 ML 100 MG/50 ML BAG IVPB SCH (07:49)
[2019-07-30] MEDS: Chlorhexidine Rinse 15 ML MOUTHWASH MM SCH ×2 (07:49→21:20)
[2019-07-30] MEDS: QUEtiapine Fumarate 25 MG TABLET GTUBE SCH ×2 (07:50→21:21)
[2019-07-30] MEDS: Potassium Chloride Elixir 20 MEQ/15 ML UDC GTUBE SCH ×2 (07:50→21:21)
[2019-07-30] MEDS: MethylPREDNISolone 40 MG/ML VIAL IVP SCH (07:51)
[2019-07-30] MEDS: Vancomycin 1,500 MG/265 ML IV.SOLN IVPB SCH ×2 (07:52→22:30)
[2019-07-30] MEDS ORDERED: 0.9 % Sodium Chloride 500 ML ONE (08:50)
[2019-07-30] MEDS: Nystatin POWDER 30 GM BOTTLE TP SCH ×3 (10:22→21:23)
[2019-07-30] MEDS: Albumin Human 5% 12.5 GM/250 ML IV.SOLN IVC SCH ×2 (10:58→12:05)
[2019-07-30 11:06] LABS: Phosphorous 2.3 mg/dL (2.7-4.5)
[2019-07-30 11:22] LABS: INR 1.2; Prothrombin Time 13.8 Seconds (9.4-12.1)
[2019-07-30 11:23] LABS: Alanine Aminotransferase 35 Units/L (7-52); Albumin 2.3 g/dL (3.5-5.7); Alkaline Phosphatase 67 Units/L (34-104); Aspartate Amino Transferase 29 Units/L (13-39); BUN/Creatinine Ratio 63 (6-26); Bilirubin,Direct 0.1 mg/dL (0.0-0.2); Bilirubin,Indirect 0.2 mg/dL (0.0-1.0); Bilirubin,Total 0.3 mg/dL (0.3-1.0); Blood Urea Nitrogen 29 mg/dL (6-20); Calcium 7.9 mg/dL (8.6-10.3); Carbon Dioxide 34 mEq/L (23-29); Chloride 110 mEq/L (98-107); Globulin 2.2 g/dL (2.4-3.5); Glucose 224 mg/dL (70-105); Osmolality,Calculated 311 (280-300); Potassium 4.7 mEq/L (3.5-5.1); Sodium 144 mEq/L (136-145); Total Protein 4.5 g/dL (6.4-8.9); eGFR For African Americans > 60 (> 60); eGFR For Non-African Americans > 60 (> 60)
[2019-07-30 11:35] LABS: Eosinophils % 0.5 %; Hematocrit 33.2 % (35.3-44.9); Hemoglobin 9.7 g/dL (11.5-15.4); Mean Corpuscular HGB Conc 29.2 g/dL (31.6-35.5); Red Cell Distribution Width 14.5 % (11.5-14.5)
[2019-07-30 11:37] LABS: Basophils % 0.2 %; Immature Granulocytes % 0.7 % (0-4); Immature Platelets 2.6 % (1.1-6.1); Lymphocytes # 0.5 K/mcL (0.6-4.6); Lymphocytes % 12.2 %; Mean Corpuscular Hemoglobin 29.5 pg (28.0-33.3); Mean Corpuscular Volume 100.9 fL (83.0-100.0); Mean Platelet Volume 9.7 fL (9.4-12.4); Monocytes # 0.2 K/mcL (0.0-1.3); Monocytes % 4.7 %; Neutrophils # 3.5 K/mcL (1.6-8.9); Red Blood Count 3.29 M/mcL (3.82-4.97); Segmented Neutrophils % 81.7 %; White Blood Count 4.3 K/mcL (4.3-11.1)
[2019-07-30 11:47] LABS: Platelet Count 97 K/mcL (140-400)
[2019-07-30 12:08] LABS: Anisocytosis 1+ (Not Present); Platelet Estimate Slight Decrease (Normal)
[2019-07-30 12:49] LABS: Troponin I 0.07 ng/mL (< 0.04)
[2019-07-30 13:17] LABS: Alanine Aminotransferase 38 Units/L (7-52); Albumin 2.4 g/dL (3.5-5.7); Alkaline Phosphatase 71 Units/L (34-104); Aspartate Amino Transferase 33 Units/L (13-39); Bilirubin,Direct 0.1 mg/dL (0.0-0.2); Bilirubin,Indirect 0.2 mg/dL (0.0-1.0); Bilirubin,Total 0.3 mg/dL (0.3-1.0); C-Reactive Protein 34 mg/L (Less than 10); Ferritin 290 ng/mL (10-120); Globulin 2.5 g/dL (2.4-3.5); Lactate Dehydrogenase 272 Units/L (140-271); Total Protein 4.9 g/dL (6.4-8.9)
[2019-07-30] MEDS ORDERED: 0.9 % Sodium Chloride 250 ML ONE (14:34)
[2019-07-30 16:40] LABS: Hematocrit 28.9 % (35.3-44.9); Hemoglobin 8.6 g/dL (11.5-15.4)
[2019-07-30 17:15] LABS: HCV Quant Log NOT DETECTED log IU/mL
[2019-07-30 18:01] LABS: ABG Base Excess 7 mEq/L (-2 to 3); ABG HCO3 35 mEq/L (21-27); ABG Oxygen Saturation 99 % (95-98); ABG PCO2 81 mmHg (35-45); ABG PH 7.25 pH Units (7.32-7.45); ABG PO2 152 mmHg (85-104); ABG TCO2 38 mEq/L (20-26); Blood Gas Modality AF; Blood Gas VT 350 cc
[2019-07-30] MEDS ORDERED: Potassium Phosphate 44 MEQ in 0.9 % Sodium Chloride 250 ML IVPB ONE (18:48)
[2019-07-30] MEDS: *HR* Heparin 5,000 UNIT/ML VIAL SQ SCH (21:20)
[2019-07-30] MEDS: Insulin DETEMIR 100 UNIT/ML X5UNITS SQ SCH (21:22)
[2019-07-30 23:18] LABS: Hematocrit 29.7 % (35.3-44.9); Hemoglobin 8.7 g/dL (11.5-15.4)
[2019-07-31 00:17] LABS: Hematocrit 32.5 % (35.3-44.9); Hemoglobin 9.4 g/dL (11.5-15.4); Mean Corpuscular HGB Conc 28.9 g/dL (31.6-35.5); Mean Corpuscular Hemoglobin 29.3 pg (28.0-33.3); Mean Corpuscular Volume 101.2 fL (83.0-100.0); Mean Platelet Volume 10.2 fL (9.4-12.4); Red Blood Count 3.21 M/mcL (3.82-4.97); Red Cell Distribution Width 14.3 % (11.5-14.5); White Blood Count 3.9 K/mcL (4.3-11.1)
[2019-07-31 00:18] LABS: Platelet Count 75 K/mcL (140-400)
[2019-07-31] MEDS: Valproic Acid Oral Soln 250 MG/5 ML UDC GTUBE SCH ×5 (00:20→23:19)
[2019-07-31] MEDS: Piperacillin/Tazobactam 3.375 GM in 0.9 % Sodium Chloride Mini Bag 100 ML IVPB SCH ×4 (00:21→23:19)
[2019-07-31] MEDS: Insulin LISPRO 300 UNITS/3 ML VIAL SQ SCH ×7 (00:52→23:49)
[2019-07-31] MEDS: Artificial Tears SOLN 15 ML BOTTLE BOTH EYES SCH ×7 (00:52→23:19)
[2019-07-31] MEDS: FentaNYL (PF) 1,000 MCG in 0.9 % Sodium Chloride 80 ML IVC SCH ×4 (02:37→23:58)
[2019-07-31 03:24] LABS: Hematocrit 27.7 % (35.3-44.9); Hemoglobin 8.1 g/dL (11.5-15.4); Mean Corpuscular HGB Conc 29.2 g/dL (31.6-35.5); Red Cell Distribution Width 14.5 % (11.5-14.5)
[2019-07-31 03:25] LABS: ABG Ionized Calcium 1.17 mmol/L (1.15-1.35)
[2019-07-31 03:26] LABS: Immature Platelets 3.5 % (1.1-6.1); Mean Corpuscular Hemoglobin 29.6 pg (28.0-33.3); Mean Corpuscular Volume 101.1 fL (83.0-100.0); Mean Platelet Volume 10.3 fL (9.4-12.4); Red Blood Count 2.74 M/mcL (3.82-4.97); White Blood Count 4.2 K/mcL (4.3-11.1)
[2019-07-31 03:46] LABS: BUN/Creatinine Ratio 56 (6-26); Blood Urea Nitrogen 22 mg/dL (6-20); Calcium 7.3 mg/dL (8.6-10.3); Carbon Dioxide 31 mEq/L (23-29); Chloride 113 mEq/L (98-107); Glucose 173 mg/dL (70-105); Magnesium 1.9 mg/dL (1.6-2.6); Osmolality,Calculated 311 (280-300); Phosphorous 2.6 mg/dL (2.7-4.5); Potassium 4.7 mEq/L (3.5-5.1); Sodium 147 mEq/L (136-145); eGFR For African Americans > 60 (> 60); eGFR For Non-African Americans > 60 (> 60)
[2019-07-31] MEDS: Ipratropium 1 PUFF INHALER IH SCH ×5 (03:56→20:17)
[2019-07-31] MEDS: *HR* Heparin 5,000 UNIT/ML VIAL SQ SCH ×3 (06:43→21:14)
[2019-07-31] MEDS: Famotidine 20 MG/2 ML VIAL IVP SCH ×2 (06:44→17:05)
[2019-07-31] MEDS: Doxycycline 100 MG in 0.9 % Sodium Chloride Mini Bag 100 ML IVPB SCH (06:45)
[2019-07-31] MEDS: Chlorhexidine Rinse 15 ML MOUTHWASH MM SCH ×2 (08:32→21:10)
[2019-07-31] MEDS: Potassium Chloride Elixir 20 MEQ/15 ML UDC GTUBE SCH ×2 (08:32→21:10)
[2019-07-31] MEDS: MethylPREDNISolone 40 MG/ML VIAL IVP SCH (08:33)
[2019-07-31] MEDS: Lactobacillus 1 EACH CAP.SPRINK GTUBE SCH (08:33)
[2019-07-31] MEDS: Fluconazole 200 MG/100 ML 100 MG/50 ML BAG IVPB SCH (08:33)
[2019-07-31] MEDS: QUEtiapine Fumarate 25 MG TABLET GTUBE SCH ×2 (08:33→21:11)
[2019-07-31] MEDS: lamoTRIgine 100 MG TABLET GTUBE SCH (08:34)
[2019-07-31] MEDS: Dexmedetomidine HCl 400 MCG/100 ML MLS IVC SCH (08:34)
[2019-07-31] MEDS: Vancomycin 1,500 MG/265 ML IV.SOLN IVPB SCH ×2 (08:44→21:12)
[2019-07-31] MEDS: Nystatin POWDER 30 GM BOTTLE TP SCH ×3 (09:17→21:09)
[2019-07-31 09:52] LABS: Hematocrit 31.1 % (35.3-44.9); Hemoglobin 9.1 g/dL (11.5-15.4)
[2019-07-31 11:03] LABS: ABG Base Excess 8 mEq/L (-2 to 3); ABG HCO3 36 mEq/L (21-27); ABG Oxygen Saturation 100 % (95-98); ABG PCO2 74 mmHg (35-45); ABG PO2 294 mmHg (85-104); ABG TCO2 38 mEq/L (20-26); Blood Gas VT 400 cc
[2019-07-31 12:07] LABS: HCV Quant Interpretation NOT DETECTED (Not Detected)
[2019-07-31] MEDS ORDERED: 0.9 % Sodium Chloride 250 ML ONE (19:04)
[2019-07-31] MEDS: Insulin DETEMIR 100 UNIT/ML X5UNITS SQ SCH (21:13)
[2019-08-01] MEDS: Ipratropium 1 PUFF INHALER IH SCH ×7 (00:10→23:49)
[2019-08-01] MEDS: Insulin LISPRO 300 UNITS/3 ML VIAL SQ SCH ×5 (04:05→19:53)
[2019-08-01] MEDS: Artificial Tears SOLN 15 ML BOTTLE BOTH EYES SCH ×5 (04:05→19:28)
[2019-08-01 04:22] LABS: Basophils % 0.2 %; Eosinophils % 0.5 %; Hematocrit 28.3 % (35.3-44.9); Hemoglobin 8.4 g/dL (11.5-15.4); Immature Granulocytes % 0.9 % (0-4); Lymphocytes # 1.1 K/mcL (0.6-4.6); Lymphocytes % 16.8 %; Mean Corpuscular HGB Conc 29.7 g/dL (31.6-35.5); Mean Corpuscular Hemoglobin 29.6 pg (28.0-33.3); Mean Corpuscular Volume 99.6 fL (83.0-100.0); Mean Platelet Volume 10.3 fL (9.4-12.4); Monocytes # 0.4 K/mcL (0.0-1.3); Neutrophils # 4.9 K/mcL (1.6-8.9); Nucleated Red Blood Cells 0.3 /100 WBC (0); Platelet Count 100 K/mcL (140-400); Red Blood Count 2.84 M/mcL (3.82-4.97); Red Cell Distribution Width 14.6 % (11.5-14.5); Segmented Neutrophils % 75.6 %; White Blood Count 6.5 K/mcL (4.3-11.1)
[2019-08-01 04:23] LABS: INR 1.1; Prothrombin Time 12.4 Seconds (9.4-12.1)
[2019-08-01 04:26] LABS: Activated Partial Thrombo Time 25.4 Seconds (26.0-36.0)
[2019-08-01 04:38] LABS: Alanine Aminotransferase 27 Units/L (7-52); Albumin 2.5 g/dL (3.5-5.7); Albumin/Globulin Ratio 1.1 (1.1-2.2); Alkaline Phosphatase 63 Units/L (34-104); Aspartate Amino Transferase 26 Units/L (13-39); BUN/Creatinine Ratio 57 (6-26); Bilirubin,Direct 0.1 mg/dL (0.0-0.2); Bilirubin,Indirect 0.2 mg/dL (0.0-1.0); Bilirubin,Total 0.3 mg/dL (0.3-1.0); Blood Urea Nitrogen 27 mg/dL (6-20); C-Reactive Protein 26 mg/L (Less than 10); Calcium 8.4 mg/dL (8.6-10.3); Carbon Dioxide 34 mEq/L (23-29); Chloride 110 mEq/L (98-107); Globulin 2.3 g/dL (2.4-3.5); Glucose 184 mg/dL (70-105); Lactate Dehydrogenase 321 Units/L (140-271); Magnesium 2.4 mg/dL (1.6-2.6); Osmolality,Calculated 312 (280-300); Phosphorous 2.2 mg/dL (2.7-4.5); Sodium 146 mEq/L (136-145); Total Protein 4.8 g/dL (6.4-8.9); eGFR For African Americans > 60 (> 60); eGFR For Non-African Americans > 60 (> 60)
[2019-08-01 04:55] LABS: Ferritin 531 ng/mL (10-120)
[2019-08-01 05:03] LABS: ABG Base Excess 11 mEq/L (-2 to 3); ABG HCO3 37 mEq/L (21-27); ABG Oxygen Saturation 93 % (95-98); ABG PCO2 61 mmHg (35-45); ABG PH 7.39 pH Units (7.32-7.45); ABG PO2 70 mmHg (85-104); ABG TCO2 39 mEq/L (20-26); Blood Gas VT 400 cc
[2019-08-01] MEDS: *HR* Heparin 5,000 UNIT/ML VIAL SQ SCH ×3 (05:31→19:31)
[2019-08-01] MEDS: Valproic Acid Oral Soln 250 MG/5 ML UDC GTUBE SCH ×3 (05:31→17:28)
[2019-08-01] MEDS: Famotidine 20 MG/2 ML VIAL IVP SCH (05:31)
[2019-08-01] MEDS: Lactobacillus 1 EACH CAP.SPRINK GTUBE SCH (07:15)
[2019-08-01] MEDS: Potassium Chloride Elixir 20 MEQ/15 ML UDC GTUBE SCH ×2 (07:16→19:27)
[2019-08-01] MEDS: lamoTRIgine 100 MG TABLET GTUBE SCH (07:16)
[2019-08-01] MEDS: QUEtiapine Fumarate 25 MG TABLET GTUBE SCH ×2 (07:16→19:28)
[2019-08-01] MEDS: Chlorhexidine Rinse 15 ML MOUTHWASH MM SCH ×2 (07:16→19:27)
[2019-08-01] MEDS: MethylPREDNISolone 40 MG/ML VIAL IVP SCH (07:18)
[2019-08-01] MEDS: Piperacillin/Tazobactam 3.375 GM in 0.9 % Sodium Chloride Mini Bag 100 ML IVPB SCH ×2 (07:52→16:02)
[2019-08-01] MEDS: Dexmedetomidine HCl 400 MCG/100 ML MLS IVC SCH (07:53)
[2019-08-01] MEDS: Nystatin POWDER 30 GM BOTTLE TP SCH ×3 (08:17→19:28)
[2019-08-01] MEDS: Vancomycin 1,500 MG/265 ML IV.SOLN IVPB SCH ×2 (08:42→19:31)
[2019-08-01] MEDS: FentaNYL (PF) 1,000 MCG in 0.9 % Sodium Chloride 80 ML IVC SCH ×2 (10:41→18:15)
[2019-08-01] MEDS ORDERED: Furosemide 40 MG/4 ML VIAL IVP ONE (17:14)
[2019-08-01] MEDS: Famotidine 20 MG TABLET GTUBE SCH (17:29)
[2019-08-01] MEDS: Insulin DETEMIR 100 UNIT/ML X5UNITS SQ SCH (19:29)
[2019-08-02] MEDS: Valproic Acid Oral Soln 250 MG/5 ML UDC GTUBE SCH ×5 (00:07→23:20)
[2019-08-02] MEDS: Artificial Tears SOLN 15 ML BOTTLE BOTH EYES SCH ×7 (00:07→23:40)
[2019-08-02] MEDS: Piperacillin/Tazobactam 3.375 GM in 0.9 % Sodium Chloride Mini Bag 100 ML IVPB SCH ×4 (00:07→23:15)
[2019-08-02] MEDS: Insulin LISPRO 300 UNITS/3 ML VIAL SQ SCH ×7 (00:26→23:40)
[2019-08-02] MEDS: FentaNYL (PF) 1,000 MCG in 0.9 % Sodium Chloride 80 ML IVC SCH ×4 (02:25→23:59)
[2019-08-02] MEDS: Ipratropium 1 PUFF INHALER IH SCH ×6 (03:36→23:13)
[2019-08-02 03:59] LABS: Basophils % 0.2 %; Mean Corpuscular Volume 99.7 fL (83.0-100.0); Nucleated Red Blood Cells 0.3 /100 WBC (0)
[2019-08-02 04:01] LABS: Eosinophils # 0.1 K/mcL (0.0-0.6); Eosinophils % 1.7 %; Hemoglobin 8.7 g/dL (11.5-15.4); Immature Granulocytes % 0.3 % (0-4); Immature Platelets 2.8 % (1.1-6.1); Lymphocytes % 15.3 %; Mean Corpuscular Hemoglobin 29.9 pg (28.0-33.3); Mean Platelet Volume 9.8 fL (9.4-12.4); Monocytes # 0.3 K/mcL (0.0-1.3); Monocytes % 4.7 %; Neutrophils # 5.1 K/mcL (1.6-8.9); Red Blood Count 2.91 M/mcL (3.82-4.97); Red Cell Distribution Width 14.6 % (11.5-14.5); Segmented Neutrophils % 77.8 %; White Blood Count 6.6 K/mcL (4.3-11.1)
[2019-08-02 04:03] LABS: INR 1.1; Prothrombin Time 12.8 Seconds (9.4-12.1)
[2019-08-02 04:04] LABS: Activated Partial Thrombo Time 25.6 Seconds (26.0-36.0)
[2019-08-02 04:07] LABS: Platelet Count 93 K/mcL (140-400)
[2019-08-02 04:29] LABS: Alanine Aminotransferase 21 Units/L (7-52); Albumin 2.6 g/dL (3.5-5.7); Albumin/Globulin Ratio 1.2 (1.1-2.2); Alkaline Phosphatase 70 Units/L (34-104); Aspartate Amino Transferase 22 Units/L (13-39); BUN/Creatinine Ratio 69 (6-26); Bilirubin,Direct 0.1 mg/dL (0.0-0.2); Bilirubin,Indirect 0.2 mg/dL (0.0-1.0); Bilirubin,Total 0.3 mg/dL (0.3-1.0); Blood Urea Nitrogen 24 mg/dL (6-20); C-Reactive Protein 115 mg/L (Less than 10); Calcium 8.6 mg/dL (8.6-10.3); Carbon Dioxide 37 mEq/L (23-29); Chloride 105 mEq/L (98-107); Creatine Kinase 23 Units/L (30-223); Globulin 2.2 g/dL (2.4-3.5); Glucose 178 mg/dL (70-105); Lactate Dehydrogenase 361 Units/L (140-271); Osmolality,Calculated 316 (280-300); Phosphorous 3.2 mg/dL (2.7-4.5); Potassium 4.1 mEq/L (3.5-5.1); Sodium 149 mEq/L (136-145); Total Protein 4.8 g/dL (6.4-8.9); Troponin I 0.05 ng/mL (< 0.04); eGFR For African Americans > 60 (> 60); eGFR For Non-African Americans > 60 (> 60)
[2019-08-02 04:35] LABS: Platelet Estimate Decreased (Normal)
[2019-08-02 04:39] LABS: Ferritin 362 ng/mL (10-120)
[2019-08-02 04:46] LABS: ABG Base Excess 16 mEq/L (-2 to 3); ABG HCO3 43 mEq/L (21-27); ABG Oxygen Saturation 92 % (95-98); ABG PCO2 70 mmHg (35-45); ABG PO2 67 mmHg (85-104); ABG TCO2 45 mEq/L (20-26); Blood Gas Modality AF; Blood Gas VT 400 cc
[2019-08-02] MEDS: *HR* Heparin 5,000 UNIT/ML VIAL SQ SCH (05:15)
[2019-08-02] MEDS: Famotidine 20 MG TABLET GTUBE SCH ×2 (05:20→16:41)
[2019-08-02] MEDS: Dexmedetomidine HCl 400 MCG/100 ML MLS IVC SCH (08:09)
[2019-08-02] MEDS: Nystatin POWDER 30 GM BOTTLE TP SCH ×3 (08:09→19:28)
[2019-08-02] MEDS: Chlorhexidine Rinse 15 ML MOUTHWASH MM SCH ×2 (08:09→19:28)
[2019-08-02] MEDS: Potassium Chloride Elixir 20 MEQ/15 ML UDC GTUBE SCH ×2 (08:09→19:28)
[2019-08-02] MEDS: QUEtiapine Fumarate 25 MG TABLET GTUBE SCH ×2 (08:10→19:28)
[2019-08-02] MEDS: MethylPREDNISolone 40 MG/ML VIAL IVP SCH (08:10)
[2019-08-02] MEDS: Lactobacillus 1 EACH CAP.SPRINK GTUBE SCH (08:10)
[2019-08-02] MEDS: lamoTRIgine 100 MG TABLET GTUBE SCH (08:10)
[2019-08-02] MEDS ORDERED: Aminoglycoside Consult 1 EACH MC ONE (09:45)
[2019-08-02] MEDS: Vancomycin 1,500 MG/265 ML IV.SOLN IVPB SCH ×2 (09:47→20:35)
[2019-08-02] MEDS: Insulin DETEMIR 100 UNIT/ML X5UNITS SQ SCH ×2 (09:48→19:29)
[2019-08-02] MEDS: *HR* Enoxaparin 40 MG/0.4 ML SYRINGE SQ SCH (09:48)
[2019-08-02] MEDS: Furosemide 20 MG/2 ML VIAL IVP SCH ×2 (10:58→19:28)
[2019-08-02] MEDS ORDERED: Vancomycin 1,750 MG/517.5 ML IV.SOLN IVPB SCH (21:00)
[2019-08-02] MEDS: Cisatracurium 200 MG in 0.9 % Sodium Chloride 180 ML IVC SCH (23:22)
[2019-08-03 01:40] LABS: ABG Base Excess 18 mEq/L (-2 to 3); ABG HCO3 47 mEq/L (21-27); ABG Oxygen Saturation 87 % (95-98); ABG PCO2 84 mmHg (35-45); ABG PH 7.36 pH Units (7.32-7.45); ABG PO2 59 mmHg (85-104); ABG TCO2 50 mEq/L (20-26); Blood Gas Modality 400
[2019-08-03 03:45] LABS: Eosinophils % 0.5 %; Hemoglobin 8.8 g/dL (11.5-15.4)
[2019-08-03 03:47] LABS: Basophils % 0.2 %; Hematocrit 29.8 % (35.3-44.9); Immature Granulocytes % 0.7 % (0-4); Immature Platelets 3.1 % (1.1-6.1); Lymphocytes # 0.4 K/mcL (0.6-4.6); Lymphocytes % 7.5 %; Mean Corpuscular HGB Conc 29.5 g/dL (31.6-35.5); Mean Corpuscular Hemoglobin 29.2 pg (28.0-33.3); Mean Platelet Volume 10.3 fL (9.4-12.4); Monocytes # 0.4 K/mcL (0.0-1.3); Monocytes % 6.8 %; Neutrophils # 4.8 K/mcL (1.6-8.9); Red Blood Count 3.01 M/mcL (3.82-4.97); Red Cell Distribution Width 14.9 % (11.5-14.5); Segmented Neutrophils % 84.3 %; White Blood Count 5.7 K/mcL (4.3-11.1)
[2019-08-03 03:49] LABS: Platelet Count 93 K/mcL (140-400)
[2019-08-03] MEDS: Ipratropium 1 PUFF INHALER IH SCH ×5 (03:53→20:00)
[2019-08-03 04:02] LABS: ABG Base Excess 16 mEq/L (-2 to 3); ABG HCO3 45 mEq/L (21-27); ABG Oxygen Saturation 93 % (95-98); ABG PCO2 82 mmHg (35-45); ABG PH 7.35 pH Units (7.32-7.45); ABG PO2 77 mmHg (85-104); ABG TCO2 48 mEq/L (20-26); Blood Gas VT 400 cc
[2019-08-03 04:05] LABS: BUN/Creatinine Ratio 68 (6-26); Blood Urea Nitrogen 25 mg/dL (6-20); Calcium 8.7 mg/dL (8.6-10.3); Carbon Dioxide 44 mEq/L (23-29); Chloride 102 mEq/L (98-107); Glucose 175 mg/dL (70-105); Magnesium 2.1 mg/dL (1.6-2.6); Osmolality,Calculated 319 (280-300); Potassium 3.7 mEq/L (3.5-5.1); Sodium 150 mEq/L (136-145); eGFR For African Americans > 60 (> 60); eGFR For Non-African Americans > 60 (> 60)
[2019-08-03] MEDS: Artificial Tears SOLN 15 ML BOTTLE BOTH EYES SCH ×5 (04:19→20:36)
[2019-08-03] MEDS: Insulin LISPRO 300 UNITS/3 ML VIAL SQ SCH ×5 (04:19→20:43)
[2019-08-03] MEDS: Valproic Acid Oral Soln 250 MG/5 ML UDC GTUBE SCH ×3 (05:45→17:49)
[2019-08-03] MEDS: Famotidine 20 MG TABLET GTUBE SCH ×2 (05:46→17:49)
[2019-08-03] MEDS: Potassium Chloride Elixir 20 MEQ/15 ML UDC GTUBE SCH ×2 (07:36→20:33)
[2019-08-03] MEDS: Chlorhexidine Rinse 15 ML MOUTHWASH MM SCH ×2 (07:36→20:33)
[2019-08-03] MEDS: *HR* Enoxaparin 40 MG/0.4 ML SYRINGE SQ SCH (07:37)
[2019-08-03] MEDS: Lactobacillus 1 EACH CAP.SPRINK GTUBE SCH (07:37)
[2019-08-03] MEDS: lamoTRIgine 100 MG TABLET GTUBE SCH (07:37)
[2019-08-03] MEDS: QUEtiapine Fumarate 25 MG TABLET GTUBE SCH ×2 (07:37→20:33)
[2019-08-03] MEDS: MethylPREDNISolone 40 MG/ML VIAL IVP SCH (07:38)
[2019-08-03] MEDS: Furosemide 20 MG/2 ML VIAL IVP SCH ×2 (07:38→20:33)
[2019-08-03] MEDS: Vancomycin 1,500 MG/265 ML IV.SOLN IVPB SCH (07:38)
[2019-08-03] MEDS: Dexmedetomidine HCl 400 MCG/100 ML MLS IVC SCH (08:39)
[2019-08-03] MEDS: FentaNYL (PF) 1,000 MCG in 0.9 % Sodium Chloride 80 ML IVC SCH ×3 (08:40→23:34)
[2019-08-03] MEDS: Nystatin POWDER 30 GM BOTTLE TP SCH ×3 (10:26→20:35)
[2019-08-03] MEDS: Cisatracurium 200 MG in 0.9 % Sodium Chloride 180 ML IVC SCH (14:50)
[2019-08-03] MEDS: Insulin DETEMIR 100 UNIT/ML X5UNITS SQ SCH ×2 (14:50→20:33)
[2019-08-03] MEDS: Norepinephrine 4 MG/254 ML IV.SOLN IVC SCH (20:35)
[2019-08-04] MEDS: Ipratropium 1 PUFF INHALER IH SCH ×6 (00:05→19:39)
[2019-08-04] MEDS: Valproic Acid Oral Soln 250 MG/5 ML UDC GTUBE SCH ×4 (00:29→18:33)
[2019-08-04] MEDS: Artificial Tears SOLN 15 ML BOTTLE BOTH EYES SCH ×6 (00:29→20:33)
[2019-08-04] MEDS: Insulin LISPRO 300 UNITS/3 ML VIAL SQ SCH ×6 (00:29→20:35)
[2019-08-04 03:25] LABS: ABG Base Excess 17 mEq/L (-2 to 3); ABG HCO3 46 mEq/L (21-27); ABG Oxygen Saturation 93 % (95-98); ABG PCO2 84 mmHg (35-45); ABG PH 7.34 pH Units (7.32-7.45); ABG PO2 74 mmHg (85-104); ABG TCO2 48 mEq/L (20-26); Blood Gas Modality AF; Blood Gas VT 400 cc
[2019-08-04] MEDS: FentaNYL (PF) 1,000 MCG in 0.9 % Sodium Chloride 80 ML IVC SCH ×4 (05:53→22:38)
[2019-08-04] MEDS: Famotidine 20 MG TABLET GTUBE SCH ×2 (06:00→18:32)
[2019-08-04] MEDS: Cisatracurium 200 MG in 0.9 % Sodium Chloride 180 ML IVC SCH ×2 (06:00→18:34)
[2019-08-04 06:27] LABS: Basophils % 0.2 %
[2019-08-04 06:29] LABS: Eosinophils # 0.1 K/mcL (0.0-0.6); Eosinophils % 1.3 %; Hematocrit 31.5 % (35.3-44.9); Hemoglobin 9.1 g/dL (11.5-15.4); Immature Granulocytes % 1.1 % (0-4); Immature Platelets 3.4 % (1.1-6.1); Lymphocytes # 0.3 K/mcL (0.6-4.6); Lymphocytes % 7.2 %; Mean Corpuscular HGB Conc 28.9 g/dL (31.6-35.5); Mean Corpuscular Hemoglobin 29.4 pg (28.0-33.3); Mean Corpuscular Volume 101.6 fL (83.0-100.0); Monocytes # 0.5 K/mcL (0.0-1.3); Monocytes % 11.2 %; Red Cell Distribution Width 14.7 % (11.5-14.5); White Blood Count 4.5 K/mcL (4.3-11.1)
[2019-08-04 06:44] LABS: Neutrophils # 3.6 K/mcL (1.6-8.9); Platelet Count 94 K/mcL (140-400)
[2019-08-04 06:56] LABS: BUN/Creatinine Ratio 75 (6-26); Blood Urea Nitrogen 21 mg/dL (6-20); Calcium 8.6 mg/dL (8.6-10.3); Carbon Dioxide > 45 mEq/L (23-29); Chloride 99 mEq/L (98-107); Glucose 140 mg/dL (70-105); Magnesium 1.9 mg/dL (1.6-2.6); Osmolality,Calculated 311 (280-300); Sodium 148 mEq/L (136-145); eGFR For African Americans > 60 (> 60); eGFR For Non-African Americans > 60 (> 60)
[2019-08-04 07:23] LABS: Platelet Estimate Slight Decrease (Normal)
[2019-08-04] MEDS: Insulin DETEMIR 100 UNIT/ML X5UNITS SQ SCH ×2 (08:30→20:35)
[2019-08-04] MEDS: MethylPREDNISolone 40 MG/ML VIAL IVP SCH (08:34)
[2019-08-04] MEDS: Potassium Chloride Elixir 20 MEQ/15 ML UDC GTUBE SCH ×2 (08:34→08:38)
[2019-08-04] MEDS: Furosemide 20 MG/2 ML VIAL IVP SCH ×2 (08:35→19:55)
[2019-08-04] MEDS: Chlorhexidine Rinse 15 ML MOUTHWASH MM SCH ×2 (08:35→19:54)
[2019-08-04] MEDS: Dexmedetomidine HCl 400 MCG/100 ML MLS IVC SCH (08:36)
[2019-08-04] MEDS: Lactobacillus 1 EACH CAP.SPRINK GTUBE SCH (08:36)
[2019-08-04] MEDS: Nystatin POWDER 30 GM BOTTLE TP SCH ×3 (08:36→20:33)
[2019-08-04] MEDS: lamoTRIgine 100 MG TABLET GTUBE SCH (08:36)
[2019-08-04] MEDS: QUEtiapine Fumarate 25 MG TABLET GTUBE SCH ×2 (08:36→19:54)
[2019-08-04] MEDS: *HR* Enoxaparin 40 MG/0.4 ML SYRINGE SQ SCH (09:44)
[2019-08-04 09:45] LABS: INR 1.1; Prothrombin Time 12.6 Seconds (9.4-12.1)
[2019-08-04 09:47] LABS: Activated Partial Thrombo Time 26.2 Seconds (26.0-36.0)
[2019-08-04 10:38] LABS: Albumin 2.5 g/dL (3.5-5.7); Bilirubin,Direct 0.1 mg/dL (0.0-0.2); Bilirubin,Indirect 0.3 mg/dL (0.0-1.0); Bilirubin,Total 0.4 mg/dL (0.3-1.0); Globulin 2.6 g/dL (2.4-3.5); Total Protein 5.1 g/dL (6.4-8.9); Troponin I 0.03 ng/mL (< 0.04)
[2019-08-04] MEDS: Norepinephrine 4 MG/254 ML IV.SOLN IVC SCH (15:29)
[2019-08-04 16:56] LABS: Appearance of Body Fluid Cloudy (Clear); Volume of Body Fluid 13 mL
[2019-08-04] MEDS ORDERED: 0.9 % Sodium Chloride 500 ML ONE (17:23)
[2019-08-05] MEDS: Valproic Acid Oral Soln 250 MG/5 ML UDC GTUBE SCH ×4 (00:06→17:30)
[2019-08-05] MEDS: Artificial Tears SOLN 15 ML BOTTLE BOTH EYES SCH ×6 (00:07→20:08)
[2019-08-05] MEDS: Ipratropium 1 PUFF INHALER IH SCH ×7 (00:10→23:42)
[2019-08-05] MEDS: Insulin LISPRO 300 UNITS/3 ML VIAL SQ SCH ×6 (00:39→20:07)
[2019-08-05] MEDS: Cisatracurium 200 MG in 0.9 % Sodium Chloride 180 ML IVC SCH ×2 (03:30→14:47)
[2019-08-05 03:53] LABS: ABG Base Excess 24 mEq/L (-2 to 3); ABG HCO3 53 mEq/L (21-27); ABG Oxygen Saturation 88 % (95-98); ABG PCO2 87 mmHg (35-45); ABG PH 7.39 pH Units (7.32-7.45); ABG PO2 60 mmHg (85-104); ABG TCO2 > 50 mEq/L (20-26); Blood Gas Modality AF; Blood Gas VT 400 cc
[2019-08-05] MEDS: FentaNYL (PF) 1,000 MCG in 0.9 % Sodium Chloride 80 ML IVC SCH ×2 (04:00→08:46)
[2019-08-05 04:44] LABS: Hemoglobin 9.1 g/dL (11.5-15.4)
[2019-08-05 04:46] LABS: Immature Platelets 5.5 % (1.1-6.1); Mean Corpuscular Volume 102.9 fL (83.0-100.0)
[2019-08-05 04:51] LABS: VBG Ionized Calcium 1.12 mmol/L (1.15-1.35)
[2019-08-05 04:51] LABS: Basophils % 0.2 %; Eosinophils # 0.1 K/mcL (0.0-0.6); Eosinophils % 1.7 %; Hematocrit 31.6 % (35.3-44.9); Lymphocytes # 0.7 K/mcL (0.6-4.6); Lymphocytes % 13.5 %; Mean Corpuscular HGB Conc 28.8 g/dL (31.6-35.5); Mean Corpuscular Hemoglobin 29.6 pg (28.0-33.3); Mean Platelet Volume 10.7 fL (9.4-12.4); Monocytes # 0.5 K/mcL (0.0-1.3); Monocytes % 9.5 %; Neutrophils # 3.6 K/mcL (1.6-8.9); Red Blood Count 3.07 M/mcL (3.82-4.97); Red Cell Distribution Width 14.9 % (11.5-14.5); Segmented Neutrophils % 74.1 %; White Blood Count 4.8 K/mcL (4.3-11.1)
[2019-08-05 04:52] LABS: INR 1.1; Platelet Count 93 K/mcL (140-400); Prothrombin Time 12.2 Seconds (9.4-12.1)
[2019-08-05 05:24] LABS: Platelet Estimate Slight Decrease (Normal)
[2019-08-05] MEDS: Famotidine 20 MG TABLET GTUBE SCH ×2 (05:37→17:30)
[2019-08-05 05:42] LABS: Alanine Aminotransferase 13 Units/L (7-52); Albumin 2.6 g/dL (3.5-5.7); Albumin/Globulin Ratio 0.9 (1.1-2.2); Alkaline Phosphatase 63 Units/L (34-104); Aspartate Amino Transferase 15 Units/L (13-39); BUN/Creatinine Ratio 68 (6-26); Bilirubin,Direct 0.1 mg/dL (0.0-0.2); Bilirubin,Indirect 0.3 mg/dL (0.0-1.0); Bilirubin,Total 0.4 mg/dL (0.3-1.0); Blood Urea Nitrogen 21 mg/dL (6-20); C-Reactive Protein 164 mg/L (Less than 10); Calcium 8.5 mg/dL (8.6-10.3); Carbon Dioxide > 45 mEq/L (23-29); Chloride 95 mEq/L (98-107); Creatine Kinase 41 Units/L (30-223); Ferritin 215 ng/mL (10-120); Globulin 2.8 g/dL (2.4-3.5); Glucose 166 mg/dL (70-105); Lactate Dehydrogenase 255 Units/L (140-271); Magnesium 2.1 mg/dL (1.6-2.6); Osmolality,Calculated 307 (280-300); Phosphorous 2.7 mg/dL (2.7-4.5); Potassium 3.8 mEq/L (3.5-5.1); Sodium 145 mEq/L (136-145); Total Protein 5.4 g/dL (6.4-8.9); Troponin I < 0.03 ng/mL (< 0.04); eGFR For African Americans > 60 (> 60); eGFR For Non-African Americans > 60 (> 60)
[2019-08-05] MEDS: Chlorhexidine Rinse 15 ML MOUTHWASH MM SCH ×2 (08:02→20:06)
[2019-08-05] MEDS: MethylPREDNISolone 40 MG/ML VIAL IVP SCH (08:02)
[2019-08-05] MEDS: Lactobacillus 1 EACH CAP.SPRINK GTUBE SCH (08:02)
[2019-08-05] MEDS: QUEtiapine Fumarate 25 MG TABLET GTUBE SCH ×2 (08:02→20:07)
[2019-08-05] MEDS: lamoTRIgine 100 MG TABLET GTUBE SCH (08:02)
[2019-08-05] MEDS: *HR* Enoxaparin 40 MG/0.4 ML SYRINGE SQ SCH (08:02)
[2019-08-05] MEDS: Furosemide 20 MG/2 ML VIAL IVP SCH ×2 (08:03→20:07)
[2019-08-05] MEDS: Potassium Chloride Elixir 20 MEQ/15 ML UDC GTUBE SCH ×2 (08:04→20:06)
[2019-08-05] MEDS: Nystatin POWDER 30 GM BOTTLE TP SCH ×3 (08:04→20:08)
[2019-08-05] MEDS: Insulin DETEMIR 100 UNIT/ML X5UNITS SQ SCH ×2 (08:45→20:06)
[2019-08-05] MEDS: Norepinephrine 4 MG/254 ML IV.SOLN IVC SCH (11:28)
[2019-08-05 12:49] LABS: Phosphorous 3.6 mg/dL (2.7-4.5); Potassium 5.1 mEq/L (3.5-5.1)
[2019-08-05] MEDS: FentaNYL (PF) 1,000 MCG/100 ML IV.SOLN IVC SCH ×2 (14:46→18:59)
[2019-08-05 17:59] LABS: ABG Base Excess 18 mEq/L (-2 to 3); ABG HCO3 50 mEq/L (21-27); ABG Oxygen Saturation 83 % (95-98); ABG PCO2 111 mmHg (35-45); ABG PH 7.27 pH Units (7.32-7.45); ABG PO2 60 mmHg (85-104); ABG TCO2 > 50 mEq/L (20-26); Blood Gas Modality ASSIST CONTROL; Blood Gas VT 350 cc
[2019-08-05 20:05] LABS: ABG Base Excess 19 mEq/L (-2 to 3); ABG HCO3 50 mEq/L (21-27); ABG Oxygen Saturation 84 % (95-98); ABG PCO2 111 mmHg (35-45); ABG PH 7.27 pH Units (7.32-7.45); ABG PO2 61 mmHg (85-104); ABG TCO2 > 50 mEq/L (20-26); Blood Gas Modality AF; Blood Gas VT 350 cc
[2019-08-06] MEDS: Artificial Tears SOLN 15 ML BOTTLE BOTH EYES SCH ×6 (00:04→20:18)
[2019-08-06] MEDS: Valproic Acid Oral Soln 250 MG/5 ML UDC GTUBE SCH ×4 (00:04→16:25)
[2019-08-06] MEDS: FentaNYL (PF) 1,000 MCG/100 ML IV.SOLN IVC SCH ×5 (00:08→21:08)
[2019-08-06] MEDS: Insulin LISPRO 300 UNITS/3 ML VIAL SQ SCH ×6 (00:45→21:07)
[2019-08-06] MEDS: Cisatracurium 200 MG in 0.9 % Sodium Chloride 180 ML IVC SCH ×3 (01:19→22:25)
[2019-08-06] MEDS: Ipratropium 1 PUFF INHALER IH SCH ×6 (03:39→23:30)
[2019-08-06 04:02] LABS: ABG Base Excess 21 mEq/L (-2 to 3); ABG HCO3 51 mEq/L (21-27); ABG Oxygen Saturation 82 % (95-98); ABG PCO2 106 mmHg (35-45); ABG PH 7.29 pH Units (7.32-7.45); ABG PO2 56 mmHg (85-104); ABG TCO2 > 50 mEq/L (20-26); Blood Gas Modality AF; Blood Gas VT 350 cc
[2019-08-06 04:54] LABS: ABG Ionized Calcium 1.14 mmol/L (1.15-1.35)
[2019-08-06 04:57] LABS: INR 1.2; Prothrombin Time 13.3 Seconds (9.4-12.1)
[2019-08-06 04:59] LABS: Activated Partial Thrombo Time 27.5 Seconds (26.0-36.0)
[2019-08-06 05:04] LABS: Mean Corpuscular Hemoglobin 29.5 pg (28.0-33.3); Nucleated Red Blood Cells 0.3 /100 WBC (0)
[2019-08-06 05:07] LABS: Basophils % 0.3 %; Eosinophils # 0.1 K/mcL (0.0-0.6); Eosinophils % 2.1 %; Hematocrit 30.6 % (35.3-44.9); Hemoglobin 8.5 g/dL (11.5-15.4); Immature Granulocytes % 1.7 % (0-4); Lymphocytes # 0.7 K/mcL (0.6-4.6); Lymphocytes % 10.2 %; Mean Corpuscular HGB Conc 27.8 g/dL (31.6-35.5); Mean Corpuscular Volume 106.3 fL (83.0-100.0); Mean Platelet Volume 10.2 fL (9.4-12.4); Monocytes # 0.9 K/mcL (0.0-1.3); Monocytes % 13.1 %; Neutrophils # 4.8 K/mcL (1.6-8.9); Platelet Count 110 K/mcL (140-400); Red Blood Count 2.88 M/mcL (3.82-4.97); Red Cell Distribution Width 14.5 % (11.5-14.5); Segmented Neutrophils % 72.6 %; White Blood Count 6.6 K/mcL (4.3-11.1)
[2019-08-06 05:23] LABS: Alanine Aminotransferase 14 Units/L (7-52); Albumin 2.6 g/dL (3.5-5.7); Albumin/Globulin Ratio 0.9 (1.1-2.2); Alkaline Phosphatase 84 Units/L (34-104); Aspartate Amino Transferase 18 Units/L (13-39); BUN/Creatinine Ratio 70 (6-26); Bilirubin,Direct 0.1 mg/dL (0.0-0.2); Bilirubin,Indirect 0.2 mg/dL (0.0-1.0); Bilirubin,Total 0.3 mg/dL (0.3-1.0); Blood Urea Nitrogen 21 mg/dL (6-20); Calcium 8.6 mg/dL (8.6-10.3); Carbon Dioxide > 45 mEq/L (23-29); Chloride 95 mEq/L (98-107); Creatine Kinase 59 Units/L (30-223); Glucose 276 mg/dL (70-105); Lactate Dehydrogenase 273 Units/L (140-271); Magnesium 2.1 mg/dL (1.6-2.6); Osmolality,Calculated 309 (280-300); Potassium 5.1 mEq/L (3.5-5.1); Sodium 143 mEq/L (136-145); Total Protein 5.6 g/dL (6.4-8.9); Troponin I 0.03 ng/mL (< 0.04); eGFR For African Americans > 60 (> 60); eGFR For Non-African Americans > 60 (> 60)
[2019-08-06 05:37] LABS: Ferritin 243 ng/mL (10-120)
[2019-08-06 05:55] LABS: Platelet Estimate Slight Decrease (Normal)
[2019-08-06] MEDS: Famotidine 20 MG TABLET GTUBE SCH ×2 (05:59→16:25)
[2019-08-06] MEDS: Potassium Chloride Elixir 20 MEQ/15 ML UDC GTUBE SCH ×2 (07:28→20:19)
[2019-08-06] MEDS: Chlorhexidine Rinse 15 ML MOUTHWASH MM SCH ×2 (07:33→20:17)
[2019-08-06] MEDS: Lactobacillus 1 EACH CAP.SPRINK GTUBE SCH (07:33)
[2019-08-06] MEDS: *HR* Enoxaparin 40 MG/0.4 ML SYRINGE SQ SCH (07:34)
[2019-08-06] MEDS: Furosemide 20 MG/2 ML VIAL IVP SCH ×2 (07:34→20:17)
[2019-08-06] MEDS: lamoTRIgine 100 MG TABLET GTUBE SCH (07:34)
[2019-08-06] MEDS: QUEtiapine Fumarate 25 MG TABLET GTUBE SCH ×2 (07:34→20:19)
[2019-08-06] MEDS: Nystatin POWDER 30 GM BOTTLE TP SCH ×3 (07:35→20:18)
[2019-08-06] MEDS: Insulin DETEMIR 100 UNIT/ML X5UNITS SQ SCH ×2 (08:10→21:08)
[2019-08-06 11:55] LABS: ABG Base Excess 22 mEq/L (-2 to 3); ABG HCO3 52 mEq/L (21-27); ABG Oxygen Saturation 86 % (95-98); ABG PCO2 108 mmHg (35-45); ABG PH 7.29 pH Units (7.32-7.45); ABG PO2 63 mmHg (85-104); ABG TCO2 > 50 mEq/L (20-26); Blood Gas VT 350 cc
[2019-08-06 12:04] LABS: ABG Base Excess 24 mEq/L (-2 to 3); ABG HCO3 55 mEq/L (21-27); ABG Oxygen Saturation 88 % (95-98); ABG PCO2 115 mmHg (35-45); ABG PH 7.28 pH Units (7.32-7.45); ABG PO2 67 mmHg (85-104); ABG TCO2 > 50 mEq/L (20-26); Blood Gas VT 350 cc
[2019-08-06] MEDS: Norepinephrine 4 MG/254 ML IV.SOLN IVC SCH (20:04)
[2019-08-07] MEDS: Artificial Tears SOLN 15 ML BOTTLE BOTH EYES SCH ×6 (00:43→21:23)
[2019-08-07] MEDS: Valproic Acid Oral Soln 250 MG/5 ML UDC GTUBE SCH ×4 (00:43→18:06)
[2019-08-07] MEDS: Insulin LISPRO 300 UNITS/3 ML VIAL SQ SCH ×6 (00:44→21:22)
[2019-08-07] MEDS: FentaNYL (PF) 1,000 MCG/100 ML IV.SOLN IVC SCH ×2 (02:40→06:42)
[2019-08-07] MEDS: Ipratropium 1 PUFF INHALER IH SCH ×6 (03:45→23:35)
[2019-08-07 04:02] LABS: ABG Ionized Calcium 1.11 mmol/L (1.15-1.35)
[2019-08-07 04:09] LABS: ABG Base Excess 22 mEq/L (-2 to 3); ABG HCO3 55 mEq/L (21-27); ABG Oxygen Saturation 92 % (95-98); ABG PCO2 134 mmHg (35-45); ABG PH 7.22 pH Units (7.32-7.45); ABG PO2 85 mmHg (85-104); ABG TCO2 > 50 mEq/L (20-26); Blood Gas Modality AF; Blood Gas VT 350 cc
[2019-08-07 04:12] LABS: Hemoglobin 8.8 g/dL (11.5-15.4); Lymphocytes % 7.7 %; Nucleated Red Blood Cells 0.5 /100 WBC (0)
[2019-08-07 04:13] LABS: Basophils # 0.1 K/mcL (0.0-0.2); Basophils % 0.6 %; Eosinophils % 0.5 %; Hematocrit 31.2 % (35.3-44.9); Immature Granulocytes % 1.7 % (0-4); Lymphocytes # 0.6 K/mcL (0.6-4.6); Mean Corpuscular HGB Conc 28.2 g/dL (31.6-35.5); Mean Corpuscular Hemoglobin 30.1 pg (28.0-33.3); Mean Corpuscular Volume 106.8 fL (83.0-100.0); Mean Platelet Volume 9.7 fL (9.4-12.4); Monocytes % 12.2 %; Platelet Count 123 K/mcL (140-400); Red Blood Count 2.92 M/mcL (3.82-4.97); Red Cell Distribution Width 14.2 % (11.5-14.5); Segmented Neutrophils % 77.3 %; White Blood Count 7.8 K/mcL (4.3-11.1)
[2019-08-07 04:20] LABS: BUN/Creatinine Ratio 96 (6-26); Blood Urea Nitrogen 24 mg/dL (6-20); Calcium 8.7 mg/dL (8.6-10.3); Carbon Dioxide > 45 mEq/L (23-29); Chloride 92 mEq/L (98-107); Glucose 125 mg/dL (70-105); Magnesium 1.9 mg/dL (1.6-2.6); Osmolality,Calculated 306 (280-300); Phosphorous 3.1 mg/dL (2.7-4.5); Potassium 4.4 mEq/L (3.5-5.1); Sodium 145 mEq/L (136-145); eGFR For African Americans > 60 (> 60); eGFR For Non-African Americans > 60 (> 60)
[2019-08-07 04:40] LABS: Platelet Estimate Slight Decrease (Normal)
[2019-08-07] MEDS: Famotidine 20 MG TABLET GTUBE SCH ×2 (05:56→18:06)
[2019-08-07] MEDS: Cisatracurium 200 MG in 0.9 % Sodium Chloride 180 ML IVC SCH (07:23)
[2019-08-07] MEDS: *HR* Enoxaparin 40 MG/0.4 ML SYRINGE SQ SCH (07:36)
[2019-08-07] MEDS: Insulin DETEMIR 100 UNIT/ML X5UNITS SQ SCH ×2 (07:36→23:00)
[2019-08-07] MEDS: Furosemide 20 MG/2 ML VIAL IVP SCH ×2 (07:36→20:44)
[2019-08-07] MEDS: Chlorhexidine Rinse 15 ML MOUTHWASH MM SCH ×2 (07:36→20:44)
[2019-08-07] MEDS: Nystatin POWDER 30 GM BOTTLE TP SCH ×3 (09:09→20:45)
[2019-08-07] MEDS ORDERED: 0.9 % Sodium Chloride 500 ML ONE (09:16)
[2019-08-07] MEDS: QUEtiapine Fumarate 25 MG TABLET GTUBE SCH ×2 (09:22→20:44)
[2019-08-07] MEDS: Midazolam HCl 50 MG/100 ML IV.SOLN IVC SCH (09:22)
[2019-08-07] MEDS: Lactobacillus 1 EACH CAP.SPRINK GTUBE SCH (09:22)
[2019-08-07] MEDS: Potassium Chloride Elixir 20 MEQ/15 ML UDC GTUBE SCH ×2 (09:22→20:44)
[2019-08-07] MEDS: lamoTRIgine 100 MG TABLET GTUBE SCH (09:22)
[2019-08-07 09:49] LABS: ABG Base Excess 24 mEq/L (-2 to 3); ABG HCO3 56 mEq/L (21-27); ABG Oxygen Saturation 85 % (95-98); ABG PCO2 123 mmHg (35-45); ABG PH 7.27 pH Units (7.32-7.45); ABG PO2 64 mmHg (85-104); ABG TCO2 > 50 mEq/L (20-26); Blood Gas Modality ASSIST CONTROL; Blood Gas VT 360 cc
[2019-08-07] MEDS: Artificial Tears SOLN 15 ML BOTTLE BOTH EYES PRN (10:24)
[2019-08-07] MEDS: FentaNYL (PF) 2,500 MCG/50 ML IV.SOLN IVC SCH ×2 (10:48→18:46)
[2019-08-07] MEDS: Norepinephrine 4 MG/254 ML IV.SOLN IVC SCH (12:32)
[2019-08-08] MEDS: Insulin LISPRO 300 UNITS/3 ML VIAL SQ SCH ×6 (00:10→21:23)
[2019-08-08] MEDS: Cisatracurium 200 MG in 0.9 % Sodium Chloride 180 ML IVC SCH ×3 (01:00→17:22)
[2019-08-08] MEDS: Artificial Tears SOLN 15 ML BOTTLE BOTH EYES SCH ×6 (02:23→20:37)
[2019-08-08] MEDS: Valproic Acid Oral Soln 250 MG/5 ML UDC GTUBE SCH ×4 (02:24→16:45)
[2019-08-08] MEDS: Ipratropium 1 PUFF INHALER IH SCH ×6 (03:49→23:55)
[2019-08-08 04:09] LABS: ABG Base Excess 24 mEq/L (-2 to 3); ABG HCO3 55 mEq/L (21-27); ABG Oxygen Saturation 93 % (95-98); ABG PCO2 119 mmHg (35-45); ABG PH 7.27 pH Units (7.32-7.45); ABG PO2 86 mmHg (85-104); ABG TCO2 > 50 mEq/L (20-26); Blood Gas Modality AF; Blood Gas VT 360 cc
[2019-08-08 05:09] LABS: Hemoglobin 8.1 g/dL (11.5-15.4); Mean Corpuscular Volume 107.1 fL (83.0-100.0); Nucleated Red Blood Cells 1.7 /100 WBC (0); Red Cell Distribution Width 14.6 % (11.5-14.5)
[2019-08-08 05:11] LABS: Basophils # 0.1 K/mcL (0.0-0.2); Basophils % 0.8 %; Eosinophils # 0.1 K/mcL (0.0-0.6); Eosinophils % 1.2 %; Hematocrit 28.7 % (35.3-44.9); Immature Granulocytes % 3.5 % (0-4); Lymphocytes # 0.9 K/mcL (0.6-4.6); Lymphocytes % 11.4 %; Mean Corpuscular HGB Conc 28.2 g/dL (31.6-35.5); Mean Corpuscular Hemoglobin 30.2 pg (28.0-33.3); Mean Platelet Volume 11.1 fL (9.4-12.4); Monocytes # 1.2 K/mcL (0.0-1.3); Monocytes % 15.1 %; Neutrophils # 5.2 K/mcL (1.6-8.9); Platelet Count 145 K/mcL (140-400); Red Blood Count 2.68 M/mcL (3.82-4.97); White Blood Count 7.7 K/mcL (4.3-11.1)
[2019-08-08 05:16] LABS: VBG Ionized Calcium 1.15 mmol/L (1.15-1.35)
[2019-08-08 05:18] LABS: Fibrinogen 428 mg/dL (169-393)
[2019-08-08 05:19] LABS: D-Dimer 1466 ng/mLFEU (0-500)
[2019-08-08 05:44] LABS: Alanine Aminotransferase 36 Units/L (7-52); Albumin 2.5 g/dL (3.5-5.7); Albumin/Globulin Ratio 0.9 (1.1-2.2); Alkaline Phosphatase 97 Units/L (34-104); Aspartate Amino Transferase 54 Units/L (13-39); BUN/Creatinine Ratio 64 (6-26); Bilirubin,Direct 0.1 mg/dL (0.0-0.2); Bilirubin,Indirect 0.3 mg/dL (0.0-1.0); Bilirubin,Total 0.4 mg/dL (0.3-1.0); Blood Urea Nitrogen 27 mg/dL (6-20); C-Reactive Protein 112 mg/L (Less than 10); Calcium 8.8 mg/dL (8.6-10.3); Carbon Dioxide > 45 mEq/L (23-29); Chloride 91 mEq/L (98-107); Globulin 2.7 g/dL (2.4-3.5); Glucose 289 mg/dL (70-105); Lactate Dehydrogenase 346 Units/L (140-271); Magnesium 2.3 mg/dL (1.6-2.6); Osmolality,Calculated 310 (280-300); Potassium 5.3 mEq/L (3.5-5.1); Sodium 142 mEq/L (136-145); Total Protein 5.2 g/dL (6.4-8.9); eGFR For African Americans > 60 (> 60); eGFR For Non-African Americans > 60 (> 60)
[2019-08-08 05:55] LABS: Ferritin 280 ng/mL (10-120)
[2019-08-08 06:13] LABS: Anisocytosis 1+ (Not Present); Basophilic Stippling 2+ (Not Present); Platelet Estimate Normal (Normal)
[2019-08-08] MEDS: Famotidine 20 MG TABLET GTUBE SCH ×2 (06:20→16:45)
[2019-08-08] MEDS: Midazolam HCl 50 MG/100 ML IV.SOLN IVC SCH ×2 (06:33→17:23)
[2019-08-08] MEDS: FentaNYL (PF) 2,500 MCG/50 ML IV.SOLN IVC SCH ×2 (06:33→18:22)
[2019-08-08] MEDS: Potassium Chloride Elixir 20 MEQ/15 ML UDC GTUBE SCH ×2 (09:16→20:37)
[2019-08-08] MEDS: Furosemide 20 MG/2 ML VIAL IVP SCH ×2 (09:21→20:39)
[2019-08-08] MEDS: Lactobacillus 1 EACH CAP.SPRINK GTUBE SCH (09:21)
[2019-08-08] MEDS: Insulin DETEMIR 100 UNIT/ML X5UNITS SQ SCH ×2 (09:22→20:37)
[2019-08-08] MEDS: lamoTRIgine 100 MG TABLET GTUBE SCH (09:22)
[2019-08-08] MEDS: *HR* Enoxaparin 40 MG/0.4 ML SYRINGE SQ SCH (09:23)
[2019-08-08] MEDS: Chlorhexidine Rinse 15 ML MOUTHWASH MM SCH ×2 (09:29→20:37)
[2019-08-08] MEDS: QUEtiapine Fumarate 25 MG TABLET GTUBE SCH ×2 (09:29→20:37)
[2019-08-08] MEDS: Nystatin POWDER 30 GM BOTTLE TP SCH ×3 (09:30→20:38)
[2019-08-08] MEDS: Norepinephrine 4 MG/254 ML IV.SOLN IVC SCH ×2 (11:37→21:33)
[2019-08-09] MEDS: Cisatracurium 200 MG in 0.9 % Sodium Chloride 180 ML IVC SCH ×2 (00:01→07:51)
[2019-08-09] MEDS: Midazolam HCl 50 MG/100 ML IV.SOLN IVC SCH ×2 (01:00→09:55)
[2019-08-09] MEDS: Insulin LISPRO 300 UNITS/3 ML VIAL SQ SCH ×6 (01:02→20:35)
[2019-08-09] MEDS: Valproic Acid Oral Soln 250 MG/5 ML UDC GTUBE SCH ×4 (01:02→16:37)
[2019-08-09] MEDS: Artificial Tears SOLN 15 ML BOTTLE BOTH EYES SCH ×6 (01:03→20:41)
[2019-08-09] MEDS: Norepinephrine 4 MG/254 ML IV.SOLN IVC SCH ×2 (02:13→11:30)
[2019-08-09 03:30] LABS: INR 1.3; Prothrombin Time 14.4 Seconds (9.4-12.1)
[2019-08-09] MEDS: Ipratropium 1 PUFF INHALER IH SCH ×6 (03:37→23:54)
[2019-08-09 03:38] LABS: Mean Platelet Volume 9.8 fL (9.4-12.4)
[2019-08-09 03:40] LABS: Hematocrit 28.2 % (35.3-44.9); Hemoglobin 7.9 g/dL (11.5-15.4); Mean Corpuscular Volume 107.2 fL (83.0-100.0); Nucleated Red Blood Cells 1.6 /100 WBC (0); Platelet Count 175 K/mcL (140-400); Red Blood Count 2.63 M/mcL (3.82-4.97); Red Cell Distribution Width 15.4 % (11.5-14.5); White Blood Count 11.1 K/mcL (4.3-11.1)
[2019-08-09 03:51] LABS: Alanine Aminotransferase 34 Units/L (7-52); Albumin 2.6 g/dL (3.5-5.7); Alkaline Phosphatase 96 Units/L (34-104); Aspartate Amino Transferase 39 Units/L (13-39); BUN/Creatinine Ratio 62 (6-26); Bilirubin,Total 0.5 mg/dL (0.3-1.0); Blood Urea Nitrogen 26 mg/dL (6-20); Calcium 8.8 mg/dL (8.6-10.3); Carbon Dioxide > 45 mEq/L (23-29); Chloride 89 mEq/L (98-107); Globulin 2.5 g/dL (2.4-3.5); Glucose 287 mg/dL (70-105); Osmolality,Calculated 309 (280-300); Potassium 4.2 mEq/L (3.5-5.1); Sodium 142 mEq/L (136-145); Total Protein 5.1 g/dL (6.4-8.9); eGFR For African Americans > 60 (> 60); eGFR For Non-African Americans > 60 (> 60)
[2019-08-09 04:31] LABS: Lymphocytes # 2.4 K/mcL (0.6-4.6); Monocytes # 0.9 K/mcL (0.0-1.3); Neutrophils # 6.7 K/mcL (1.6-8.9); Polychromasia 1+ (Not Present)
[2019-08-09 04:32] LABS: Anisocytosis 2+ (Not Present); Macrocytosis Present (Not Present); Microcytosis Present (Not Present)
[2019-08-09 04:34] LABS: Basophilic Stippling 1+ (Not Present)
[2019-08-09 04:35] LABS: Platelet Estimate Normal (Normal)
[2019-08-09 04:45] LABS: ABG Base Excess 18 mEq/L (-2 to 3); ABG HCO3 53 mEq/L (21-27); ABG Oxygen Saturation 86 % (95-98); ABG PCO2 137 mmHg (35-45); ABG PO2 70 mmHg (85-104); ABG TCO2 > 50 mEq/L (20-26); Blood Gas Modality ASSIST CONTROL; Blood Gas VT 360 cc
[2019-08-09] MEDS: Famotidine 20 MG TABLET GTUBE SCH ×2 (05:08→16:37)
[2019-08-09] MEDS: Potassium Chloride Elixir 20 MEQ/15 ML UDC GTUBE SCH ×3 (07:04→20:35)
[2019-08-09] MEDS: Lactobacillus 1 EACH CAP.SPRINK GTUBE SCH (07:31)
[2019-08-09] MEDS: *HR* Enoxaparin 40 MG/0.4 ML SYRINGE SQ SCH (07:31)
[2019-08-09] MEDS: lamoTRIgine 100 MG TABLET GTUBE SCH (07:31)
[2019-08-09] MEDS: Nystatin POWDER 30 GM BOTTLE TP SCH ×3 (07:32→20:41)
[2019-08-09] MEDS: Furosemide 20 MG/2 ML VIAL IVP SCH ×2 (07:32→20:36)
[2019-08-09] MEDS: Chlorhexidine Rinse 15 ML MOUTHWASH MM SCH ×2 (07:32→20:40)
[2019-08-09] MEDS: Insulin DETEMIR 100 UNIT/ML X5UNITS SQ SCH ×2 (07:35→20:35)
[2019-08-09] MEDS: QUEtiapine Fumarate 25 MG TABLET GTUBE SCH ×2 (07:35→20:35)
[2019-08-09] MEDS: FentaNYL (PF) 2,500 MCG/50 ML IV.SOLN IVC SCH ×2 (07:52→22:43)
[2019-08-09 09:35] LABS: ABG Base Excess 26 mEq/L (-2 to 3); ABG HCO3 57 mEq/L (21-27); ABG Oxygen Saturation 77 % (95-98); ABG PCO2 128 mmHg (35-45); ABG PH 7.26 pH Units (7.32-7.45); ABG PO2 53 mmHg (85-104); ABG TCO2 > 50 mEq/L (20-26); Blood Gas Modality ASSIST CONTROL; Blood Gas VT 380 cc
[2019-08-09] MEDS ORDERED: Insulin DETEMIR 100 UNIT/ML X5UNITS SQ ONE (10:00)
[2019-08-10] MEDS: Insulin LISPRO 300 UNITS/3 ML VIAL SQ SCH ×3 (00:11→12:03)
[2019-08-10] MEDS: Valproic Acid Oral Soln 250 MG/5 ML UDC GTUBE SCH ×3 (00:11→12:07)
[2019-08-10] MEDS: Artificial Tears SOLN 15 ML BOTTLE BOTH EYES SCH ×4 (00:11→12:03)
[2019-08-10] MEDS: Ipratropium 1 PUFF INHALER IH SCH ×3 (03:58→11:55)
[2019-08-10] MEDS: Famotidine 20 MG TABLET GTUBE SCH (04:07)
[2019-08-10] MEDS ORDERED: Haloperidol Lactate 5 MG/ML VIAL IVP PRN (09:49)
[2019-08-10] MEDS ORDERED: Dexamethasone 4 MG/ML VIAL IVP ONE (09:50)
[2019-08-10] MEDS: Lactobacillus 1 EACH CAP.SPRINK GTUBE SCH (12:05)
[2019-08-10] MEDS: lamoTRIgine 100 MG TABLET GTUBE SCH (12:05)
[2019-08-10] MEDS: Chlorhexidine Rinse 15 ML MOUTHWASH MM SCH (12:05)
[2019-08-10] MEDS: Insulin DETEMIR 100 UNIT/ML X5UNITS SQ SCH (12:06)
[2019-08-10] MEDS: QUEtiapine Fumarate 25 MG TABLET GTUBE SCH (12:06)
[2019-08-10] MEDS: Nystatin POWDER 30 GM BOTTLE TP SCH (12:06)
[2019-08-10] MEDS: Potassium Chloride Elixir 20 MEQ/15 ML UDC GTUBE SCH (12:06)
[2019-08-10] MEDS: Furosemide 20 MG/2 ML VIAL IVP SCH (12:06)
[2019-08-10] MEDS ORDERED: 0.9 % Sodium Chloride 250 ML ONE (12:09)
[2019-08-10 13:01] VITALS: BP 120/53
== END 2019-08-10 15:00 | disposition expired | DRG 720 ==
LOC: 2NENU → SUATTDRO 05:29
PROVIDERS: ADMIT Internal Medicine; ATTEND Pharmacist